=== PATIENT | female | born 1960 | race American Indian/Alaskan Native ===

== ENCOUNTER 2017-07-28 19:49 | Observation (INO) | payer MEDICARE, MEDICAID ==
[2017-07-28] MEDS ORDERED: Sodium Chloride 0.9% 1,000 ML IV STA (20:08)
[2017-07-28 20:18] LABS: HEMOGLOBIN 14.1 g/dL (12.0-16.0); MEAN CELL VOLUME 95.2 fl (80.0-105.0); MEAN CORPUSCULAR HEMOGLOBIN 33.9 pg (25.0-35.0); MEAN CORPUSCULAR HGB CONC 35.6 g/dl (31.0-37.0); MEAN PLATELET VOLUME 9.2 fl (7.0-11.0); RBC 4.16 10^6/uL (3.5-6.1); RED CELL DISTRIBUTION WIDTH 12.4 % (11.5-14.5); WHITE BLOOD COUNT 13.2 10^3/ul (4.5-11.0)
--- NOTE | 2017-07-28 20:26 | ED PDOC ---
Arrival/HPI - General Chief Complaint: Abdominal Pain Time Seen by Provider: 07/28/17 19:58 Historian: Patient - History of Present Illness Narrative History of Present Illness (Text): 07/28/17 20:20 56 year old female, whose past medical history includes COPD, hysterectomy, and colonic polyps, who presents to the emergency department complaining of right lower quadrant pain associated with nausea and frequent vomiting. Patient is also complaining of cramping to bilateral hands. Patient denies fever, chills, shortness of breath, chest pain, or other complaints. Time/Duration: < week Symptom Onset: Sudden Symptom Course: Unchanged Context: Home Past Medical History - Provider Review Nursing Documentation Reviewed: Yes - Cardiac Hx Cardiac Disorders: Yes Hx Congestive Heart Failure: Yes - Psychiatric Hx Substance Use: Yes Family/Social History - Physician Review Nursing Documentation Reviewed: Yes Family/Social History: Unknown Family HX Smoking Status: Light Smoker < 10 Cigarettes Daily Hx Alcohol Use: Yes Frequency of alcohol use: Socially Hx Substance Use: Yes Substance used: Marijuana Allergies/Home Meds Allergies/Adverse Reactions: Allergies No Known Allergies Allergy (Verified 07/28/17 19:54) Home Medications: Home Meds Medication Instructions Recorded Confirmed Hydrochlorothiazide [Microzide] 12.5 mg PO DAILY 07/28/17 07/28/17 Review of Systems - Review of Systems Constitutional: absent: Fevers ENT: absent: Sore Throat Respiratory: absent: SOB Cardiovascular: absent: Chest Pain Gastrointestinal: Abdominal Pain (right lower quadrant ), Nausea, Vomiting. absent: Diarrhea Genitourinary Female: absent: Dysuria Musculoskeletal: absent: Back Pain Skin: absent: Rash Neurological: absent: Headache Endocrine: absent: Diaphoresis Physical Exam Vital Signs Reviewed: Yes Vital Signs Temp Pulse Resp BP Pulse Ox 07/28/17 23:28 98.0 F 77 18 172/83 H 100 07/28/17 19:59 98.0 F 87 18 148/73 100 Temperature: Afebrile Blood Pressure: Normal Pulse: Regular Respiratory Rate: Normal Appearance: Positive for: Well-Appearing, Non-Toxic, Comfortable Pain Distress: None Mental Status: Positive for: Alert and Oriented X 3 - Systems Exam Head: Present: Atraumatic, Normocephalic Pupils: Present: PERRL Extroacular Muscles: Present: EOMI Conjunctiva: Present: Normal Mouth: Present: Moist Mucous Membranes Respiratory/Chest: Present: Clear to Auscultation, Good Air Exchange. No: Respiratory Distress, Accessory Muscle Use, Wheezes, Decreased Breath Sounds, Rales, Retracting, Rhonchi Cardiovascular: Present: Regular Rate and Rhythm, Normal S1, S2. No: Murmurs Abdomen: Present: Tenderness (tenderness on lower abdomen on palpation ), Normal Bowel Sounds. No: Distention, Peritoneal Signs, Rebound, Guarding Upper Extremity: Present: Normal ROM, NORMAL PULSES, Neurovascularly Intact ( spasms noted to bilateral hands ). No: Normal Inspection, Cyanosis, Edema, Tenderness, Swelling, Erythema Neurological: Present: GCS=15, CN II-XII Intact, Speech Normal Skin: Present: Warm, Dry, Normal Color. No: Rashes Psychiatric: Present: Alert, Oriented x 3, Normal Insight, Normal Concentration Medical Decision Making ED Course and Treatment: 07/28/17 Impression: 56 year old female with tenderness on lower abdomen and spasms noted on bilateral hands, complaining of right lower quadrant pain associated with vomiting. Plan: -- EKG -- CT abdomen and pelvis -- Labs -- Pepcid, Toradol, Zofran, and Sodium Chloride -- Urinalysis -- Reassess and disposition Progress Notes: 07/28/17 EKG: Ordered, reviewed, and independently interpreted the EKG. Rate : 79 BPM Rhythm : NSR Interpretation : No ST-segment elevations or depressions, no T-wave inversions, normal intervals. 07/28/17 22:14 CT Abdomen and Pelvis, shows: Lung bases: Unremarkable. No mass. No consolidation. Mediastinum: Small hiatal hernia. ABDOMEN: Liver: The liver is slightly heterogenous in appearance. The liver is enlarged. Gallbladder and bile ducts: Unremarkable. No calcified stones. No ductal dilation. Pancreas: Pancreas evaluation is limited. No ductal dilation. Spleen: Unremarkable. No splenomegaly. Adrenals: 2 cm ovoid nodule in the left adrenal gland. Indeterminate. Further characterization is advised on non-emergent basis. Kidneys and ureters: Subcentimeter low-density lesion then the right kidney is too small No hydronephrosis. Stomach and bowel: There is wall thickening noted involving the descending colon and sigmoid colon. it is under distended. However colitis is considered, in the appropriate clinical setting. Bowel evaluation is limited due to lack of distention. PELVIS: Appendix: No findings to suggest acute appendicitis. Bladder: Unremarkable. No mass. Reproductive: 5.5 x 6.5 cm septated cystic lesion in the region of the right ovary there is there is questionable enhancement or septation. Ultrasound correlation is recommended. ABDOMEN and PELVIS: Intraperitoneal space: Unremarkable. No free air. No significant fluid collection. Bones/joints: No acute fracture. No dislocation. Soft tissues: Small fat-containing umbilical defect. Vasculature: Unremarkable. No abdominal aortic aneurysm. Lymph nodes: Unremarkable. No enlarged lymph nodes. IMPRESSION: 1. 2 cm ovoid nodule in the left adrenal gland. Indeterminate. Further characterization is advised on non-emergent basis. 2. There is wall thickening noted involving the descending colon and sigmoid colon. it is under distended. However colitis is considered, in the appropriate clinical setting. 3. 5.5 x 6.5 cm septated cystic lesion in the region of the right ovary , there is questionable enhancement or septation. Ultrasound correlation is recommended. 07/29/17 00:50 Transvaginal US shows: Limitations: Transabdominal sonographic imaging is limited. Uterus/cervix: The uterus is absent, consistent with the clinical history of partial hysterectomy. Right ovary: There is a right ovarian complex cyst measuring 5.9 x 3.5 x 4.3 cm. Internal septation is visualized. Hypoechoic debris is seen posteriorly. The right ovary measures 6.6 x 3.6 x 4.6 cm. There is physiologic blood flow in right ovary. Left ovary: The left ovary is not visualized. Free fluid: No free fluid. Bladder: Wall is normal thickness for degree of distention. IMPRESSION: 1. There is a right ovarian complex cyst measuring 5.9 x 3.5 x 4.3 cm. Follow- up ultrasonography is recommended. 2. Additional findings described above 07/29/17 00:[address] Shaffer, who is aware and agrees with plan. Accepts pt in to his service. Pt will be admitted to [facility] for colitis, abdominal pain, and vomiting. Requests Dr. Austin on consult. residential roofer notified. - Lab Interpretations Lab Results: 07/28/17 20:00 07/28/17 20:00 Lab Results 07/28/17 22:22: Urine Color Yellow, Urine Appearance Clear, Urine pH 7.5, Ur Specific [place] 1.010, Urine Protein Trace H, Urine Glucose (UA) 100 H, Urine Ketones 40 H, Urine Blood Trace-intact H, Urine Nitrate Negative, Urine Bilirubin Negative, Urine Urobilinogen 0.2, Ur Leukocyte Esterase Negative, Urine RBC 1 - 3, Urine WBC Negative, Ur Epithelial Cells 1 - 3, Urine Bacteria Trace 07/28/17 20:00: WBC 13.2 H, RBC 4.16, Hgb 14.1, Hct 39.6, MCV 95.2, MCH 33.9, MCHC 35.6, RDW 12.4, Plt Count 393, MPV 9.2 07/28/17 20:00: Sodium 142, Potassium 3.3 L, Chloride 101, Carbon Dioxide 25, Anion Gap 20, BUN 14, Creatinine 0.6 L, Est GFR ( Amer) > 60, Est GFR ( Non-Af Amer) > 60, Random Glucose 183 H, Calcium 10.1, Total Bilirubin 0.5, AST 29, ALT 22, Alkaline Phosphatase 88, Total Protein 8.6 H, Albumin 4.9 H, Globulin 3.7, Albumin/Globulin Ratio 1.3, Lipase 49 I have reviewed the lab results: Yes - RAD Interpretation Radiology Orders: 07/28/17 20:08 ABD & PELVIS IV CONTRAST ONLY [CT] Stat 07/28/17 22:15 TRANSVAGINAL [US] Stat Freight Adjuster: Radiologist - EKG Interpretation Interpreted by ED Physician: Yes Type: 12 lead EKG - Medication Orders Current Medication Orders: Sodium Chloride (Sodium Chloride 0.9%) 1,000 mls @ 100 mls/hr IV .Q10H STA Stop: 07/29/17 11:04 Ondansetron HCl (Zofran Inj) 4 mg IVP Q6H PRN PRN Reason: Nausea/Vomiting Discontinued Medications Famotidine (Pepcid) 20 mg IVP STAT STA Stop: 07/28/17 20:09 Last Admin: 07/28/17 20:19 Dose: 20 mg IVP Administration Document 07/28/17 20:19 OCS (Rec: 07/28/17 20:19 OCS [id number]) Charges for Administration # of IVP Administrations 1 Sodium Chloride (Sodium Chloride 0.9%) 1,000 mls @ 999 mls/hr IV .Q1H1M STA Stop: 07/28/17 21:08 Last Admin: 07/28/17 20:18 Dose: 999 mls/hr eMAR Start Stop Document 07/28/17 20:18 OCS (Rec: 07/28/17 20:19 OCS [id number]) Intravenous Solution Start Date 07/28/17 Start Time 20:18 End Date 07/28/17 End time 21:19 Total Infusion Time 61 Ceftriaxone Sodium (Rocephin 1 Gram Ivpb) 1 gm in 100 mls @ 200 mls/hr IV ONCE STA PRN Reason: Protocol Stop: 07/28/17 23:21 Last Admin: 07/28/17 23:25 Dose: 200 mls/hr eMAR Start Stop Document 07/28/17 23:25 OCS (Rec: 07/28/17 23:25 OCS [id number]) Intravenous Solution Start Date 07/28/17 Start Time 23:25 End Date 07/28/17 End time 23:55 Total Infusion Time 30 Metronidazole (Flagyl) 500 mg in 100 mls @ 100 mls/hr IVPB STAT STA PRN Reason: Protocol Stop: 07/28/17 23:51 Last Admin: 07/29/17 00:36 Dose: 100 mls/hr eMAR Start Stop Document 07/29/17 00:36 OCS (Rec: 07/29/17 00:36 OCS [id number]) Intravenous Solution Start Date 07/29/17 Start Time 00:36 End Date 07/29/17 End time 01:36 Total Infusion Time 60 Ketorolac Tromethamine (Toradol) 30 mg IVP ONCE ONE Stop: 07/28/17 20:09 Last Admin: 07/28/17 20:19 Dose: 30 mg MAR Pain Assessment Document 07/28/17 20:19 OCS (Rec: 07/28/17 20:19 [id number] Pain Reassessment Is this a pain reassessment? No Sleep Is patient sleeping during reassessment? No Presence of Pain Presence of Pain Yes Location Pain Location Body Site Abdomen Description Description Constant Intensity of Pain at present 8 IVP Administration Document 07/28/17 20:19 OCS (Rec: 07/28/17 20:19 [id number] Charges for Administration # of IVP Administrations 1 Morphine Sulfate (Morphine) 2 mg IVP STAT STA Stop: 07/28/17 22:10 Last Admin: 07/28/17 22:46 Dose: 2 mg MAR Pain Assessment Document 07/28/17 22:46 OCS (Rec: 07/28/17 22:46 [id number] Pain Reassessment Is this a pain reassessment? Yes Sleep Is patient sleeping during reassessment? No Presence of Pain Presence of Pain Yes Pain Scale Used Pain Scale Used Numeric Location Pain Location Body Site Abdomen Description Description Constant Intensity of Pain at present 9 Pain Behavior Moaning Irritability Facial Grimacing IVP Administration Document 07/28/17 22:46 OCS (Rec: 07/28/17 22:46 [id number] Charges for Administration # of IVP Administrations 1 Ondansetron HCl (Zofran Inj) 4 mg IVP ONCE ONE Stop: 07/28/17 20:09 Last Admin: 07/28/17 20:19 Dose: 4 mg IVP Administration Document 07/28/17 20:19 OCS (Rec: 07/28/17 20:19 [id number] Charges for Administration # of IVP Administrations 1 - Scribe Statement The provider has reviewed the documentation as recorded by the Odell Moreno Provider Scribe Attestation: All medical record entries made by the Scribe were at my direction and personally dictated by me. I have reviewed the chart and agree that the record accurately reflects my personal performance of the history, physical exam, medical decision making, and the department course for this patient. I have also personally directed, reviewed, and agree with the discharge instructions and disposition. Disposition/Present on Arrival - Present on Arrival Any Indicators Present on Arrival: No History of DVT/PE: No History of Uncontrolled Diabetes: No Urinary Catheter: No History of Decub. Ulcer: No History Surgical Site Infection Following: None - Disposition Have Diagnosis and Disposition been Completed?: Yes Diagnosis: Abdominal pain, Colitis, Intractable vomiting Disposition: HOSPITALIZED Disposition Time: 01:05 Patient Problems: Current Active Problems Problem Status Onset Abdominal pain Acute Colitis Acute Intractable vomiting Acute Condition: STABLE Forms: doxo (Sammarinese)
[2017-07-28 20:32] LABS: ALB/GLOB RATIO 1.3 (1.1-1.8); ALBUMIN 4.9 g/dL (3.0-4.8); ALT/SGPT 22 U/L (7-56); AST/SGOT 29 U/L (14-36); BLOOD UREA NITROGEN 14 mg/dL (7-21); CALCIUM 10.1 mg/dL (8.4-10.5); GFR AFRICAN-AMERICAN > 60; GFR NON-AFRICAN AMERICAN > 60; LIPASE 49 U/L (23-300)
[2017-07-28] MEDS ORDERED: Iohexol 350 MG/100 ML VIAL ONE (20:51)
[2017-07-28] MEDS ORDERED: Morphine 2 mg/ml ISec IVP STA (22:09)
[2017-07-28 22:25] LABS: PH,URINE 7.5 (4.7-8.0); URINE BILIRUBIN NEGATIVE (NEGATIVE); URINE BLOOD TRACE-INTACT (NEGATIVE); URINE GLUCOSE (UA) 100 mg/dL (NEGATIVE); URINE LEUKOCYTE ESTERASE NEGATIVE Leu/uL (NEGATIVE); URINE PROTEIN TRACE mg/dL (<30 mg/dL); URINE UROBILINOGEN 0.2 E.U./dL (<1 E.U./dL)
[2017-07-28 22:26] LABS: URINE APPEARANCE CLEAR (CLEAR); URINE COLOR YELLOW (YELLOW)
[2017-07-28 22:31] LABS: URINE BACTERIA TRACE (NEG); URINE WBC NEGATIVE /hpf (0-6)
[2017-07-28] MEDS ORDERED: cefTRIAXone 1 gm 1 GM/100 ML BAG IV STA (22:52)
[2017-07-28] MEDS ORDERED: metroNIDAZOLE IV 500 mg/100 ml 500 MG/100 ML BAG IVPB STA (22:52)
--- NOTE | 2017-07-29 00:49 | US ---
EXAM: US Pelvis Complete, Transabdominal US Pelvis, Transvaginal EXAM DATE/TIME: 07/28/2017 10:15 PM CLINICAL HISTORY: The patient age is 56 years old and is female; Pain; Pelvic pain Facility exam id and description: Us transve transvaginal TECHNIQUE: Real-time transabdominal and transvaginal pelvic ultrasound (complete) with image documentation. Transvaginal imaging was used for better evaluation of the endometrium and adnexa. COMPARISON: CT - ABD PELVIS IV CONTRAST ONLY 2017-07-28 21:00 FINDINGS: Limitations: Transabdominal sonographic imaging is limited. Uterus/cervix: The uterus is absent, consistent with the clinical history of partial hysterectomy. Right ovary: There is a right ovarian complex cyst measuring 5.9 x 3.5 x 4.3 cm. Internal septation is visualized. Hypoechoic debris is seen posteriorly. The right ovary measures 6.6 x 3.6 x 4.6 cm. There is physiologic blood flow in right ovary. Left ovary: The left ovary is not visualized. Free fluid: No free fluid. Bladder: Wall is normal thickness for degree of distention. IMPRESSION: 1. There is a right ovarian complex cyst measuring 5.9 x 3.5 x 4.3 cm. Follow-up ultrasonography is recommended. 2. Additional findings described above.
[2017-07-29] MEDS ORDERED: Sodium Chloride 0.9% 1,000 ML IV STA (01:05)
--- NOTE | 2017-07-29 01:31 | CP.PCM.HP ---
<Compa Douglas - Last Filed: 07/29/17 08:56> History of Present Illness - History of Present Illness History of Present Illness: 56 year old female with a past medical history of hypertension who comes in today complaining of nausea and vomiting for since this morning. The patient reports not being able to keep anything down except a little of water. The patient reports taking Pepto Bismol at home with no improvement in symtpoms. She denies any new foods or changes in her diet. She denies any chest pain, shortness of breath, fevers, chills, syncopal episodes, headache, numbness or tingling in the extremities or any other complaints. Past medical history: Hypertension Surgical history: 2012 Hysterectomy 2018 Removal of benign colonic polyps Allergies: Pollen Medications: Lasix 12.5mg PO Daily Social history: Smoking history of 53 years. Denies illicit drug use or alcohol use. PMD: Dr. Wesley Present on Admission - Present on Admission Any Indicators Present on Admission: No Review of Systems - Constitutional Constitutional: absent: Daytime Sleepiness, Headache, Snoring, Weakness - EENT Eyes: absent: Loss of Peripheral Vision, Loss of Vision Ears: absent: Ear Discharge, Dizziness Nose/Mouth/Throat: absent: Nasal Trauma, Bleeding Gums, Halitosis, Mouth Pain, Facial Pain - Breasts Breasts: absent: Change in Shape - Cardiovascular Cardiovascular: absent: Chest Pain, Claudication, Irregular Heart Rhythm, Leg Edema, Syncope - Respiratory Respiratory: absent: Cough, Hemoptysis, Snoring, Excessive Mucous Production, Change in Mucous Color - Gastrointestinal Gastrointestinal: Nausea, Vomiting. absent: Belching, Cramping, Excessive Flatus, Fecal Incontinence, Loose Stools, Temesmus - Genitourinary Genitourinary: absent: Change in Urinary Stream, Pyuria, Urinary Hesitance, Freq UTI, Bladder Distension - Musculoskeletal Musculoskeletal: absent: Abnormal Gait, Arthralgias, Atrophy, Limited Range of Motion, Myalgias, Neck Pain, Tingling - Integumentary Integumentary: absent: Bleeding Lesions, Changing Lesions, New Lesions, Rash, Striae, Swelling, Unusual Bruising - Neurological Neurological: absent: Abnormal Hearing, Behavioral Changes, Dizziness, Lack of Coordination, Radicular Pain, Tingling - Psychiatric Psychiatric: absent: Abnormal Sleep Pattern, Behavioral Changes, Depression, Hopelessness, Panic Attacks, Tactile Hallucinations - Endocrine Endocrine: absent: Polydipsia, Polyphagia, Polyuria - Hematologic/Lymphatic Hematologic: absent: Easy Bleeding, Easy Bruising Past Patient History - Past Social History Smoking Status: Light Smoker < 10 Cigarettes Daily - CARDIAC Hx Cardiac Disorders: Yes Hx Congestive Heart Failure: Yes - PSYCHIATRIC Hx Substance Use: Yes Meds Allergies/Adverse Reactions: Allergies Allergy/AdvReac Type Severity Reaction Status Date / Time No Known Allergies Allergy Verified 07/28/17 19:54 Physical Exam - Head Exam Head Exam: ATRAUMATIC, NORMAL INSPECTION, NORMOCEPHALIC - Eye Exam Eye Exam: EOMI, Normal appearance, PERRL Pupil Exam: NORMAL ACCOMODATION - ENT Exam ENT Exam: Mucous Membranes Moist, Normal Oropharynx - Respiratory Exam Respiratory Exam: Clear to Auscultation Bilateral, NORMAL BREATHING PATTERN. absent: Chest Wall Tenderness, Prolonged Expiratory Phase, Respiratory Distress - Cardiovascular Exam Cardiovascular Exam: REGULAR RHYTHM, +S1, +S2 - GI/Abdominal Exam GI & Abdominal Exam: Normal Bowel Sounds, Tenderness - Extremities Exam Extremities exam: Positive for: normal inspection. Negative for: full ROM, joint swelling, pedal edema, tenderness - Back Exam Back exam: NORMAL INSPECTION. absent: CVA tenderness (L), CVA tenderness (R), paraspinal tenderness - Neurological Exam Neurological exam: Alert, CN II-XII Intact, Oriented x3 - Psychiatric Exam Psychiatric exam: Normal Affect, Normal Mood - Skin Skin Exam: Dry, Intact, Normal Color Results - Vital Signs Recent Vital Signs: Last Vital Signs Temp 98.0 F 07/28/17 23:28 Pulse 77 07/28/17 23:28 Resp 18 07/28/17 23:28 BP 172/83 H 07/28/17 23:28 Pulse Ox 100 07/28/17 23:28 - Labs Result Diagrams: 07/28/17 20:00 07/28/17 20:00 Labs: Laboratory Results - last 24 hr 07/28/17 07/28/17 07/28/17 20:00 20:00 22:22 WBC 13.2 H RBC 4.16 Hgb 14.1 Hct 39.6 MCV 95.2 MCH 33.9 MCHC 35.6 RDW 12.4 Plt Count 393 MPV 9.2 Sodium 142 Potassium 3.3 L Chloride 101 Carbon Dioxide 25 Anion Gap 20 BUN 14 Creatinine 0.6 L Est GFR ( Amer) > 60 Est GFR (Non-Af Amer) > 60 Random Glucose 183 H Calcium 10.1 Total Bilirubin 0.5 AST 29 ALT 22 Alkaline Phosphatase 88 Total Protein 8.6 H Albumin 4.9 H Globulin 3.7 Albumin/Globulin Ratio 1.3 Lipase 49 Urine Color Yellow Urine Appearance Clear Urine pH 7.5 Ur Specific [place] 1.010 Urine Protein Trace H Urine Glucose (UA) 100 H Urine Ketones 40 H Urine Blood Trace-intact H Urine Nitrate Negative Urine Bilirubin Negative Urine Urobilinogen 0.2 Ur Leukocyte Esterase Negative Urine RBC 1 - 3 Urine WBC Negative Ur Epithelial Cells 1 - 3 Urine Bacteria Trace Assessment & Plan - Assessment and Plan (Free Text) Assessment: 56 year old female with a history of hypertension being admitted for Colitis. Plan: 1. Colitis -Abdomen/pelvis ct: 2 cm ovoid nodule in left adrenal gland. Wall thickening noted involving descending colon and sigmoid colon. 5.5X6.5cm septated cystic lesion in region of right ovary -NPO -IV Fluids -IV Rocephin and Flagyl -GI consulted. Help appreciated 2. hx hypertension -Restart home medications PPX -Heparin -Protonix. <DeenaLianaSalas U - Last Filed: 07/30/17 16:28> Results - Vital Signs Recent Vital Signs: Last Vital Signs Temp 98 F 07/30/17 09:04 Pulse 48 L 07/30/17 09:04 Resp 17 07/30/17 09:04 BP 157/77 H 07/30/17 09:04 Pulse Ox 98 07/30/17 09:04 - Labs Result Diagrams: 07/30/17 06:00 07/30/17 06:00 Labs: Laboratory Results - last 24 hr 07/29/17 07/29/17 07/29/17 07:30 10:30 10:30 WBC RBC Hgb Hct MCV MCH MCHC RDW Plt Count MPV Gran % Lymph % (Auto) [place] % (Auto) Eos % (Auto) Baso % (Auto) Gran # Lymph # (Auto) [place] # (Auto) Eos # (Auto) Baso # (Auto) Sodium Potassium Chloride Carbon Dioxide Anion Gap BUN Creatinine Est GFR ( Amer) Est GFR (Non-Af Amer) Random Glucose Fructosamine 242 Calcium Magnesium Total Bilirubin Direct Bilirubin AST ALT Alkaline Phosphatase Total Protein Albumin Globulin Albumin/Globulin Ratio Urine Opiates Screen U Oth Cocaine Metabols U Cannabinoids Screen RPR Nonreactive Hepatitis C Antibody HIV 1&2 Ag/Ab, 4th Gen Nonreactive 07/29/17 07/29/17 07/30/17 10:30 13:15 06:00 WBC 9.3 RBC 3.75 Hgb 12.4 Hct 36.4 MCV 97.1 MCH 33.1 MCHC 34.1 RDW 12.7 Plt Count 323 MPV 9.2 Gran % 58.9 Lymph % (Auto) 31.6 [place] % (Auto) 7.7 H Eos % (Auto) 1.4 L Baso % (Auto) 0.4 Gran # 5.47 Lymph # (Auto) 2.9 [place] # (Auto) 0.7 H Eos # (Auto) 0.1 Baso # (Auto) 0.04 Sodium Potassium Chloride Carbon Dioxide Anion Gap BUN Creatinine Est GFR ( Amer) Est GFR (Non-Af Amer) Random Glucose Fructosamine Calcium Magnesium Total Bilirubin Direct Bilirubin AST ALT Alkaline Phosphatase Total Protein Albumin Globulin Albumin/Globulin Ratio Urine Opiates Screen Positive H U Oth Cocaine Metabols Negative U Cannabinoids Screen Positive H RPR Hepatitis C Antibody Negative HIV 1&2 Ag/Ab, 4th Gen 07/30/17 07/30/17 06:00 06:00 WBC RBC Hgb Hct MCV MCH MCHC RDW Plt Count MPV Gran % Lymph % (Auto) [place] % (Auto) Eos % (Auto) Baso % (Auto) Gran # Lymph # (Auto) [place] # (Auto) Eos # (Auto) Baso # (Auto) Sodium 142 Potassium 3.5 L Chloride 107 Carbon Dioxide 23 Anion Gap 15 BUN 9 Creatinine 0.6 L Est GFR ( Amer) > 60 Est GFR (Non-Af Amer) > 60 Random Glucose 92 Fructosamine Calcium 8.6 Magnesium 1.9 Total Bilirubin 0.7 0.5 Direct Bilirubin 0.1 AST 27 24 ALT 24 21 Alkaline Phosphatase 62 59 Total Protein 6.5 6.5 Albumin 3.8 3.9 Globulin 2.8 2.6 Albumin/Globulin Ratio 1.3 1.5 Urine Opiates Screen U Oth Cocaine Metabols U Cannabinoids Screen RPR Hepatitis C Antibody HIV 1&2 Ag/Ab, 4th Gen Attending/Attestation - Attestation I have personally seen and examined this patient.: Yes I have fully participated in the care of the patient.: Yes I have reviewed all pertinent clinical information: Yes
[2017-07-29] MEDS: metroNIDAZOLE IV 500 mg/100 ml 500 MG/100 ML BAG IVPB SCH ×3 (05:24→21:28)
[2017-07-29] MEDS: Levalbuterol 0.63 MG/3 ML Inhal Soln UD IH SCH ×3 (07:20→19:36)
[2017-07-29 07:56] LABS: HEMOGLOBIN 13.2 g/dL (12.0-16.0); MEAN CELL VOLUME 95.5 fl (80.0-105.0); MEAN CORPUSCULAR HEMOGLOBIN 33.3 pg (25.0-35.0); MEAN CORPUSCULAR HGB CONC 34.9 g/dl (31.0-37.0); MEAN PLATELET VOLUME 9.2 fl (7.0-11.0); RBC 3.96 10^6/uL (3.5-6.1); RED CELL DISTRIBUTION WIDTH 12.5 % (11.5-14.5)
[2017-07-29 08:05] LABS: ALB/GLOB RATIO 1.4 (1.1-1.8); ALBUMIN 4.3 g/dL (3.0-4.8); ALT/SGPT 24 U/L (7-56); AST/SGOT 22 U/L (14-36); BILIRUBIN,DIRECT 0.3 mg/dL (0.0-0.4); BLOOD UREA NITROGEN 14 mg/dL (7-21); CALCIUM 8.9 mg/dL (8.4-10.5); GFR AFRICAN-AMERICAN > 60; GFR NON-AFRICAN AMERICAN > 60; HDL CHOLESTEROL 51 mg/dL (29-60)
[2017-07-29 08:08] LABS: LDL CHOLESTEROL 182 mg/dL (0-129)
[2017-07-29 08:16] LABS: FREE T4 1.17 ng/dL (0.78-2.19); T4 7.7 ug/dL (5.5-11.0)
[2017-07-29] MEDS: cefTRIAXone 1 gm 1 GM/100 ML BAG IVPB SCH (09:11)
--- NOTE | 2017-07-29 10:04 | CARD ---
APPROVED REPORT EKG Measurement Heart [id number] <Conclusion> Normal sinus rhythm Nonspecific T wave abnormality Prolonged QT Abnormal ECG
--- NOTE | 2017-07-29 10:36 | CT ---
PROCEDURE: CT Abdomen and Pelvis with contrast HISTORY: abdominal pain COMPARISON: None. TECHNIQUE: Contrast dose: 100 cc of Omni 350 Radiation dose: Total exam DLP = 463 mGy-cm. This CT exam was performed using one or more of the following dose reduction techniques: Automated exposure control, adjustment of the mA and/or kV according to patient size, and/or use of iterative reconstruction technique. FINDINGS: LOWER THORAX: Unremarkable. LIVER: Unremarkable. No gross lesion or ductal dilatation. GALLBLADDER AND BILE DUCTS: Unremarkable. PANCREAS: Unremarkable. No gross lesion or ductal dilatation. SPLEEN: Unremarkable. ADRENALS: There is enlargement of the left adrenal gland which has a low density. This is most likely adrenal hyperplasia or adenoma. KIDNEYS AND URETERS: Unremarkable. No hydronephrosis. No solid mass. VASCULATURE: Unremarkable. No aortic aneurysm. BOWEL: There is lack of distension of the descending and sigmoid colon. There is mild mural thickening. This could represent mild colitis. Clinical correlation is suggested APPENDIX: Normal appendix. PERITONEUM: Unremarkable. No free fluid. No free air. LYMPH NODES: Unremarkable. No enlarged lymph nodes. BLADDER: Unremarkable. REPRODUCTIVE: There is a septated right adnexal cyst measuring 4.6 x 5.4 cm. Previous hysterectomy BONES: No acute fracture. OTHER FINDINGS: The report concurs with the preliminary [facility] report IMPRESSION: There is lack of distension of the descending and sigmoid colon. There is mild mural thickening. This could represent mild colitis. Clinical correlation is suggested There is a septated right adnexal cyst measuring 4.6 x 5.4 cm. Previous hysterectomy
[2017-07-29] MEDS: POLYETHYLENE GLYCOL 3350 17 GM/Dose PACKET PO SCH ×2 (11:05→11:56)
[2017-07-29 14:48] LABS: BARBITURATES, UR NEGATIVE (NEGATIVE); BENZODIAZEPINES, UR NEGATIVE (NEGATIVE)
[2017-07-29 14:49] LABS: PHENCYCLIDINE, UR NEGATIVE (NEGATIVE)
[2017-07-29 16:12] LABS: HEPATITIS B SURFACE AG Negative (NEGATIVE)
[2017-07-29 16:17] LABS: HEPATITIS A IGM NEGATIVE (NEGATIVE); HEPATITIS B CORE AB NEGATIVE (NEGATIVE)
[2017-07-29 16:29] LABS: HEPATITIS C ANTIBODY NEGATIVE (NEGATIVE)
[2017-07-29] MEDS ORDERED: Ergocalciferol 50,000 Intl Units Cap PO SCH (17:30)
[2017-07-29] MEDS: Thiamine 100 mg/ml Inj IV SCH (19:39)
--- NOTE | 2017-07-30 00:07 | CON ---
DATE: 07/29/2017 GASTROENTEROLOGY CONSULTATION REQUESTING PHYSICIAN: Salas Shaffer MD REASON FOR CONSULTATION AND HISTORY OF PRESENT ILLNESS: I have been asked to see this 56-year-old female with history of hypertension who comes to the hospital with two days of intractable nausea and vomiting. The patient was unable to keep any liquids down. She has not had any further vomiting since her hospitalization. A CT scan of the abdomen and pelvis performed here in the hospital showed mild nonspecific mural thickening of the sigmoid and descending colon without any pericolonic inflammation associated with underdistention of the colon as well as a right 5.5 x 4.5 cm adnexal cyst. She denies any diarrhea, ingestion of any unusual foods, rectal bleeding, hematemesis or melena. The patient smokes marijuana on a regular basis. She last smoked marijuana on the day that her symptoms began. PAST MEDICAL HISTORY: Notable for hypertension. PAST SURGICAL HISTORY: Notable for hysterectomy. Notes that she recently had a colonoscopy with removal of benign polyps. SOCIAL HISTORY: She smokes between a half pack and a pack a day of tobacco. She smokes marijuana regularly. MEDICATIONS AT HOME: Include Lasix mg once a day. FAMILY HISTORY: Noncontributory. REVIEW OF SYSTEMS: A 14-point review of systems is notable for nausea and vomiting. PHYSICAL EXAMINATION GENERAL: Middle-aged female lying in bed, in no acute distress. VITAL SIGNS: Reveal temperature of 99.4, blood pressure 139/88, and heart rate of 80. HEENT: Reveals sclerae to be white. Conjunctivae pink. Oral mucosa is moist. NECK: Supple. CHEST: Revealed lungs to be clear. HEART: Reveals regular rate and rhythm. ABDOMEN: Soft and nontender. No mass. EXTREMITIES: Show no edema. LABORATORY DATA: Reveal white blood cell count of 11, hemoglobin 13.2. Chemistries reveal potassium of 3.3, blood sugar 120. AST, ALT and alkaline phosphatase were all normal. IMPRESSION: A 56-year-old female with two days of intractable nausea and vomiting which may be related to her chronic cannabis use. CT scan of the abdomen and pelvis showed mild nonspecific mural thickening of the sigmoid colon and descending colon. I suspect that this is due to underdistention and lack of contrast that is supposed to an acute colitis. Clinically, she does not have acute colitis. RECOMMENDATIONS: 1. Advance to solid diet consisting of low fat, low residue. 2. The patient will need PIPELINE DISPATCHER followup with a repeat pelvic ultrasound in the next three to four months for followup of her ovarian cyst. No further PIPELINE DISPATCHER workup planned. Jaime Austin MD
[2017-07-30 00:27] LABS: OPIATES, UR POSITIVE (NEGATIVE)
[2017-07-30] MEDS: Levalbuterol 0.63 MG/3 ML Inhal Soln UD IH SCH ×2 (01:30→07:09)
[2017-07-30] MEDS: metroNIDAZOLE IV 500 mg/100 ml 500 MG/100 ML BAG IVPB SCH (05:31)
[2017-07-30 06:49] LABS: BASO # 0.04 K/mm3 (0.0-2.0); BASO % 0.4 % (0.0-3.0); EOS # 0.1 (0.0-0.7); EOS % 1.4 % (1.5-5.0); GRAN # 5.47 (1.4-6.5); GRAN % 58.9 % (50.0-68.0); HEMOGLOBIN 12.4 g/dL (12.0-16.0); LYMPH # 2.9 (1.2-3.4); LYMPH % 31.6 % (22.0-35.0); MEAN CELL VOLUME 97.1 fl (80.0-105.0); MEAN CORPUSCULAR HEMOGLOBIN 33.1 pg (25.0-35.0); MEAN CORPUSCULAR HGB CONC 34.1 g/dl (31.0-37.0); MEAN PLATELET VOLUME 9.2 fl (7.0-11.0); MONO # 0.7 (0.1-0.6); MONO % 7.7 % (1.0-6.0); RBC 3.75 10^6/uL (3.5-6.1); RED CELL DISTRIBUTION WIDTH 12.7 % (11.5-14.5); WHITE BLOOD COUNT 9.3 10^3/ul (4.5-11.0)
[2017-07-30 07:00] LABS: ALB/GLOB RATIO 1.5 (1.1-1.8); ALBUMIN 3.9 g/dL (3.0-4.8); BILIRUBIN,DIRECT 0.1 mg/dL (0.0-0.4)
[2017-07-30 07:15] LABS: ALB/GLOB RATIO 1.3 (1.1-1.8); ALBUMIN 3.8 g/dL (3.0-4.8); ALT/SGPT 24 U/L (7-56); AST/SGOT 27 U/L (14-36); BLOOD UREA NITROGEN 9 mg/dL (7-21); CALCIUM 8.6 mg/dL (8.4-10.5); GFR AFRICAN-AMERICAN > 60; GFR NON-AFRICAN AMERICAN > 60
[2017-07-30 09:04] VITALS: BP 157/77; PULSE 48; RESP 17; TEMP 98; O2SAT 98
[2017-07-30] MEDS: Potassium Chloride 40 mEq/30 ml LIQ UD PO SCH ×3 (09:31→11:01)
[2017-07-30] MEDS: cefTRIAXone 1 gm 1 GM/100 ML BAG IVPB SCH (09:31)
[2017-07-30] MEDS: Thiamine 100 mg/ml Inj IV SCH (09:35)
[2017-07-30] MEDS: POLYETHYLENE GLYCOL 3350 17 GM/Dose PACKET PO SCH (09:35)
[2017-07-30] MEDS: Potassium Chloride 20 mEq ER Tab PO SCH ×2 (10:53→12:04)
--- NOTE | 2017-07-30 11:48 | CP.PCM.DIS ---
<JustoSunilradhajohn - Last Filed: 07/30/17 11:43> Provider - Provider Date of Admission: 07/29/17 00:58 Attending physician: Salas Shaffer MD Consults: GI: Geovanna Time Spent in preparation of Discharge (in minutes): 35 Diagnosis - Discharge Diagnosis (1) Abdominal pain Status: Acute (2) Colitis Status: Acute Hospital Course - Lab Results Lab Results: Most Recent Lab Values WBC 9.3 10^3/ul (4.5-11.0) 07/30/17 06:00 RBC 3.75 10^6/uL (3.5-6.1) 07/30/17 06:00 Hgb 12.4 g/dL (12.0-16.0) 07/30/17 06:00 Hct 36.4 % (36.0-48.0) 07/30/17 06:00 MCV 97.1 fl (80.0-105.0) 07/30/17 06:00 MCH 33.1 pg (25.0-35.0) 07/30/17 06:00 MCHC 34.1 g/dl (31.0-37.0) 07/30/17 06:00 RDW 12.7 % (11.5-14.5) 07/30/17 06:00 Plt Count 323 10^3/uL (120.0-450.0) 07/30/17 06:00 MPV 9.2 fl (7.0-11.0) 07/30/17 06:00 Gran % 58.9 % (50.0-68.0) 07/30/17 06:00 Lymph % (Auto) 31.6 % (22.0-35.0) 07/30/17 06:00 [place] % (Auto) 7.7 % (1.0-6.0) H 07/30/17 06:00 Eos % (Auto) 1.4 % (1.5-5.0) L 07/30/17 06:00 Baso % (Auto) 0.4 % (0.0-3.0) 07/30/17 06:00 Gran # 5.47 (1.4-6.5) 07/30/17 06:00 Lymph # (Auto) 2.9 (1.2-3.4) 07/30/17 06:00 [place] # (Auto) 0.7 (0.1-0.6) H 07/30/17 06:00 Eos # (Auto) 0.1 (0.0-0.7) 07/30/17 06:00 Baso # (Auto) 0.04 K/mm3 (0.0-2.0) 07/30/17 06:00 Sodium 142 mmol/L (132-148) 07/30/17 06:00 Potassium 3.5 mmol/L (3.6-5.0) L 07/30/17 06:00 Chloride 107 mmol/L (98-107) 07/30/17 06:00 Carbon Dioxide 23 mmol/L (21-33) 07/30/17 06:00 Anion Gap 15 (10-20) 07/30/17 06:00 BUN 9 mg/dL (7-21) 07/30/17 06:00 Creatinine 0.6 mg/dl (0.7-1.2) L 07/30/17 06:00 Est GFR ( Amer) > 60 07/30/17 06:00 Est GFR (Non-Af Amer) > 60 07/30/17 06:00 Random Glucose 92 mg/dL (70-110) 07/30/17 06:00 Hemoglobin A1c 6.0 % (4.2-6.5) 07/29/17 07:30 Fructosamine 242 umol/L (190-270) 07/29/17 07:30 Lactic Acid 0.7 mmol/L (0.7-2.1) 07/29/17 08:50 Calcium 8.6 mg/dL (8.4-10.5) 07/30/17 06:00 Magnesium 1.9 mg/dL (1.7-2.2) 07/30/17 06:00 Total Bilirubin 0.7 mg/dL (0.2-1.3) 07/30/17 06:00 Direct Bilirubin 0.1 mg/dL (0.0-0.4) 07/30/17 06:00 AST 27 U/L (14-36) 07/30/17 06:00 ALT 24 U/L (7-56) 07/30/17 06:00 Alkaline Phosphatase 62 U/L (38-126) 07/30/17 06:00 Total Protein 6.5 g/dL (5.8-8.3) 07/30/17 06:00 Albumin 3.8 g/dL (3.0-4.8) 07/30/17 06:00 Globulin 2.8 gm/dL 07/30/17 06:00 Albumin/Globulin Ratio 1.3 (1.1-1.8) 07/30/17 06:00 Triglycerides 60 mg/dL (35-160) 07/29/17 07:30 Cholesterol 283 mg/dL (130-200) H 07/29/17 07:30 LDL Cholesterol Direct 182 mg/dL (0-129) H 07/29/17 07:30 HDL Cholesterol 51 mg/dL (29-60) 07/29/17 07:30 Lipase 49 U/L (23-300) 07/28/17 20:00 25-OH Vitamin D Total 19.5 NG/ML (30.0-100.0) L 07/29/17 07:30 Procalcitonin 0.05 NG/ML (0.19-0.49) L 07/29/17 07:30 Free T4 1.17 ng/dL (0.78-2.19) 07/29/17 07:30 Thyroxine (T4) 7.7 ug/dL (5.5-11.0) 07/29/17 07:30 TSH 3rd Generation 0.59 mIU/mL (0.46-4.68) 07/29/17 07:30 Urine Color Yellow (YELLOW) 07/28/17 22:22 Urine Appearance Clear (CLEAR) 07/28/17 22:22 Urine pH 7.5 (4.7-8.0) 07/28/17 22:22 Ur Specific [place] 1.010 (1.005-1.035) 07/28/17 22:22 Urine Protein Trace mg/dL (<30 mg/dL) H 07/28/17 22:22 Urine Glucose (UA) 100 mg/dL (NEGATIVE) H 07/28/17 22:22 Urine Ketones 40 mg/dL (NEGATIVE) H 07/28/17 22:22 Urine Blood Trace-intact (NEGATIVE) H 07/28/17 22:22 Urine Nitrate Negative (NEGATIVE) 07/28/17 22:22 Urine Bilirubin Negative (NEGATIVE) 07/28/17 22:22 Urine Urobilinogen 0.2 E.U./dL (<1 E.U./dL) 07/28/17 22:22 Ur Leukocyte Esterase Negative Pia/uL (NEGATIVE) 07/28/17 22:22 Urine RBC 1 - 3 /hpf (0-2) 07/28/17 22:22 Urine WBC Negative /hpf (0-6) 07/28/17 22:22 Ur Epithelial Cells 1 - 3 /hpf (0-5) 07/28/17 22:22 Urine Bacteria Trace (NEG) 07/28/17 22:22 Urine HCG, Qual Negative (NEGATIVE) 07/29/17 09:00 Urine Opiates Screen Positive (NEGATIVE) H 07/29/17 13:15 Urine Methadone Screen Negative (NEGATIVE) 07/29/17 13:15 Ur Barbiturates Screen Negative (NEGATIVE) 07/29/17 13:15 Ur Phencyclidine Scrn Negative (NEGATIVE) 07/29/17 13:15 Ur Amphetamines Screen Negative (NEGATIVE) 07/29/17 13:15 U Benzodiazepines Scrn Negative (NEGATIVE) 07/29/17 13:15 U Oth Cocaine Metabols Negative (NEGATIVE) 07/29/17 13:15 U Cannabinoids Screen Positive (NEGATIVE) H 07/29/17 13:15 RPR Nonreactive (NONREACTIVE) 07/29/17 10:30 Hepatitis A IgM Ab Negative (NEGATIVE) 07/29/17 10:30 Hep Bs Antigen Negative (NEGATIVE) 07/29/17 10:30 Hep B Core IgM Ab Negative (NEGATIVE) 07/29/17 10:30 Hepatitis C Antibody Negative (NEGATIVE) 07/29/17 10:30 HIV 1&2 Ag/Ab, 4th Gen Nonreactive (Nonreactive) 07/29/17 10:30 - Hospital Course Hospital Course: 56 yo F with PMH of hypertension and bipolar disorder who initially presented complaining of nausea, vomiting, and abdominal pain, and was found to have evidence of colitis on cross sectional imaging. She was also noted to have a complex ovarian cyst, which she already knew about and reportedly has had for many years, but was informed about it and instructed to follow up with gynecology. She was treated with IV antibiotics, pain control, and antiemetics for colitis, nausea, and vomiting. She was also seen by gastroenterology. Her diet was progressively advanced, which she tolerated well. Today, she is tolerating a regular diet with no further nausea, vomiting, or abdominal pain. She denies fever, chills, or diarrhea. She was given a prescription to continue antibiotics for 5 more days, and is discharged home. Discharge Exam - Head Exam Head Exam: ATRAUMATIC, NORMAL INSPECTION, NORMOCEPHALIC - Eye Exam Eye Exam: EOMI, Normal appearance - ENT Exam ENT Exam: Mucous Membranes Moist - Respiratory Exam Respiratory Exam: Clear to PA & Lateral, NORMAL BREATHING PATTERN - Cardiovascular Exam Cardiovascular Exam: RRR - GI/Abdominal Exam GI & Abdominal Exam: Normal Bowel Sounds, Soft. absent: Distended, Firm, Guarding, Rebound, Rigid, Tenderness - Extremities Exam Extremities exam: normal inspection - Neurological Exam Neurological exam: Alert, Oriented x3 - Psychiatric Exam Psychiatric exam: Normal Affect, Normal Mood - Skin Skin Exam: Dry, Intact, Normal Color Discharge Plan - Discharge Medications Prescriptions: Ciprofloxacin [Cipro] 500 mg PO BID #10 tab Ergocalciferol [Drisdol 50,000 Intl Units Cap] 1 cap PO Q7D #12 cap metroNIDAZOLE [Flagyl] 500 mg PO TID #15 tab Nicotine 21 mg/24 hr [Nicoderm Cq] 1 patch TD DAILY #30 patch Polyethylene Glycol 3350 [Miralax] 17 gm PO DAILY #30 packet Thiamine [Vitamin B1 Tab] 100 mg PO DAILY #30 tab - Follow Up Plan Condition: STABLE Disposition: HOME/ ROUTINE Instructions: Acute Abdomen (Belly Pain), Adult (DC), Nausea and Vomiting, Adult (DC), Microscopic Colitis, Acute Abdominal Pain (DC) Additional Instructions: Continue to take the antibiotics as prescribed for 5 more days, even if you feel better MAY DISCHARGE HOME FOLLOW UP: PRIMARY MEDICAL DOCTOR PSYCHIATRY GYNECOLOGY WITHIN 1 WEEK PATIENT TO RELEASE ALL RECORDS FROM THIS HOSPITALIZATION TO PMD, PSYCHIATRY AND GYNECOLOGY STOP ALCOHOL, STOP SMOKING STOP RECREATIONAL DRUG USE Return to the ER for any new or worsening concerns. Referrals: Jaime Austin MD [Staff Provider] - Salas Shaffer MD [Staff Provider] - <Salas Shaffer - Last Filed: 07/30/17 16:29> Provider - Provider Date of Admission: 07/29/17 00:58 Attending physician: Salas Shaffer MD Hospital Course - Lab Results Lab Results: Most Recent Lab Values WBC 9.3 10^3/ul (4.5-11.0) 07/30/17 06:00 RBC 3.75 10^6/uL (3.5-6.1) 07/30/17 06:00 Hgb 12.4 g/dL (12.0-16.0) 07/30/17 06:00 Hct 36.4 % (36.0-48.0) 07/30/17 06:00 MCV 97.1 fl (80.0-105.0) 07/30/17 06:00 MCH 33.1 pg (25.0-35.0) 07/30/17 06:00 MCHC 34.1 g/dl (31.0-37.0) 07/30/17 06:00 RDW 12.7 % (11.5-14.5) 07/30/17 06:00 Plt Count 323 10^3/uL (120.0-450.0) 07/30/17 06:00 MPV 9.2 fl (7.0-11.0) 07/30/17 06:00 Gran % 58.9 % (50.0-68.0) 07/30/17 06:00 Lymph % (Auto) 31.6 % (22.0-35.0) 07/30/17 06:00 [place] % (Auto) 7.7 % (1.0-6.0) H 07/30/17 06:00 Eos % (Auto) 1.4 % (1.5-5.0) L 07/30/17 06:00 Baso % (Auto) 0.4 % (0.0-3.0) 07/30/17 06:00 Gran # 5.47 (1.4-6.5) 07/30/17 06:00 Lymph # (Auto) 2.9 (1.2-3.4) 07/30/17 06:00 [place] # (Auto) 0.7 (0.1-0.6) H 07/30/17 06:00 Eos # (Auto) 0.1 (0.0-0.7) 07/30/17 06:00 Baso # (Auto) 0.04 K/mm3 (0.0-2.0) 07/30/17 06:00 Sodium 142 mmol/L (132-148) 07/30/17 06:00 Potassium 3.5 mmol/L (3.6-5.0) L 07/30/17 06:00 Chloride 107 mmol/L (98-107) 07/30/17 06:00 Carbon Dioxide 23 mmol/L (21-33) 07/30/17 06:00 Anion Gap 15 (10-20) 07/30/17 06:00 BUN 9 mg/dL (7-21) 07/30/17 06:00 Creatinine 0.6 mg/dl (0.7-1.2) L 07/30/17 06:00 Est GFR ( Amer) > 60 07/30/17 06:00 Est GFR (Non-Af Amer) > 60 07/30/17 06:00 Random Glucose 92 mg/dL (70-110) 07/30/17 06:00 Hemoglobin A1c 6.0 % (4.2-6.5) 07/29/17 07:30 Fructosamine 242 umol/L (190-270) 07/29/17 07:30 Lactic Acid 0.7 mmol/L (0.7-2.1) 07/29/17 08:50 Calcium 8.6 mg/dL (8.4-10.5) 07/30/17 06:00 Magnesium 1.9 mg/dL (1.7-2.2) 07/30/17 06:00 Total Bilirubin 0.7 mg/dL (0.2-1.3) 07/30/17 06:00 Direct Bilirubin 0.1 mg/dL (0.0-0.4) 07/30/17 06:00 AST 27 U/L (14-36) 07/30/17 06:00 ALT 24 U/L (7-56) 07/30/17 06:00 Alkaline Phosphatase 62 U/L (38-126) 07/30/17 06:00 Total Protein 6.5 g/dL (5.8-8.3) 07/30/17 06:00 Albumin 3.8 g/dL (3.0-4.8) 07/30/17 06:00 Globulin 2.8 gm/dL 07/30/17 06:00 Albumin/Globulin Ratio 1.3 (1.1-1.8) 07/30/17 06:00 Triglycerides 60 mg/dL (35-160) 07/29/17 07:30 Cholesterol 283 mg/dL (130-200) H 07/29/17 07:30 LDL Cholesterol Direct 182 mg/dL (0-129) H 07/29/17 07:30 HDL Cholesterol 51 mg/dL (29-60) 07/29/17 07:30 Lipase 49 U/L (23-300) 07/28/17 20:00 25-OH Vitamin D Total 19.5 NG/ML (30.0-100.0) L 07/29/17 07:30 Procalcitonin 0.05 NG/ML (0.19-0.49) L 07/29/17 07:30 Free T4 1.17 ng/dL (0.78-2.19) 07/29/17 07:30 Thyroxine (T4) 7.7 ug/dL (5.5-11.0) 07/29/17 07:30 TSH 3rd Generation 0.59 mIU/mL (0.46-4.68) 07/29/17 07:30 Urine Color Yellow (YELLOW) 07/28/17 22:22 Urine Appearance Clear (CLEAR) 07/28/17 22:22 Urine pH 7.5 (4.7-8.0) 07/28/17 22:22 Ur Specific [place] 1.010 (1.005-1.035) 07/28/17 22:22 Urine Protein Trace mg/dL (<30 mg/dL) H 07/28/17 22:22 Urine Glucose (UA) 100 mg/dL (NEGATIVE) H 07/28/17 22:22 Urine Ketones 40 mg/dL (NEGATIVE) H 07/28/17 22:22 Urine Blood Trace-intact (NEGATIVE) H 07/28/17 22:22 Urine Nitrate Negative (NEGATIVE) 07/28/17 22:22 Urine Bilirubin Negative (NEGATIVE) 07/28/17 22:22 Urine Urobilinogen 0.2 E.U./dL (<1 E.U./dL) 07/28/17 22:22 Ur Leukocyte Esterase Negative Pia/uL (NEGATIVE) 07/28/17 22:22 Urine RBC 1 - 3 /hpf (0-2) 07/28/17 22:22 Urine WBC Negative /hpf (0-6) 07/28/17 22:22 Ur Epithelial Cells 1 - 3 /hpf (0-5) 07/28/17 22:22 Urine Bacteria Trace (NEG) 07/28/17 22:22 Urine HCG, Qual Negative (NEGATIVE) 07/29/17 09:00 Urine Opiates Screen Positive (NEGATIVE) H 07/29/17 13:15 Urine Methadone Screen Negative (NEGATIVE) 07/29/17 13:15 Ur Barbiturates Screen Negative (NEGATIVE) 07/29/17 13:15 Ur Phencyclidine Scrn Negative (NEGATIVE) 07/29/17 13:15 Ur Amphetamines Screen Negative (NEGATIVE) 07/29/17 13:15 U Benzodiazepines Scrn Negative (NEGATIVE) 07/29/17 13:15 U Oth Cocaine Metabols Negative (NEGATIVE) 07/29/17 13:15 U Cannabinoids Screen Positive (NEGATIVE) H 07/29/17 13:15 RPR Nonreactive (NONREACTIVE) 07/29/17 10:30 Hepatitis A IgM Ab Negative (NEGATIVE) 07/29/17 10:30 Hep Bs Antigen Negative (NEGATIVE) 07/29/17 10:30 Hep B Core IgM Ab Negative (NEGATIVE) 07/29/17 10:30 Hepatitis C Antibody Negative (NEGATIVE) 07/29/17 10:30 HIV 1&2 Ag/Ab, 4th Gen Nonreactive (Nonreactive) 07/29/17 10:30 Attending/Attestation - Attestation I have personally seen and examined this patient.: Yes I have fully participated in the care of the patient.: Yes I have reviewed all pertinent clinical information, including history, physical exam and plan: Yes
--- NOTE | 2017-07-30 16:17 | CP.PCM.PCO ---
Physician Communication Note - Physician Communication Note Physician Communication Note: pt was d/c before this writer producer evaluation
--- NOTE | 2017-07-31 09:14 | HP ---
HISTORY AND PHYSICAL ADDENDUM DATE OF EXAM: 07/29/2017 HISTORY OF PRESENT ILLNESS: A 56--year-old female who presented to the emergency room complaining according to the triage notes, right lower quadrant pain, nausea, vomiting started today. According to the ER physician evaluation, the patient presented complaining of right lower quadrant pain associated with nausea, vomiting and 1 bowel movement yesterday. The patient was examined with the medical aides teacher. Patient's vital signs, diagnostic data, imaging data all reviewed. ADMISSION IMPRESSION AND PLAN: 1. Nausea, vomiting and right lower quadrant abdominal pain. Etiology undetermined. 2. Low grade fever of 99.4. 3. History of hypertension. 4. Leukocytosis. 5. Hypokalemia. 6. Hyperglycemia. 7. Hypercholesterolemia with elevated LDL. 8. Trace proteinuria, glycosuria, ketonuria, microscopic hematuria, bacteriuria. 9. History of partial hysterectomy. 10. Right ovarian complex cyst with internal septation and hypoechoic debris. 11. Nonvisualized left ovary. 12. Hepatomegaly. 13. Left adrenal 2 cm nodule, indeterminate. 14. Right kidney low density subcentimeter lesions. 15. Questionable and possible colitis with descending colon and sigmoid colon wall thickening. 16. Right ovarian septated cystic lesion and complex cyst. 17. Possible left adrenal hyperplasia or adenoma. 18. Septated right adnexal cyst 4.6 x 5.4 cm. 19. History of hysterectomy. 20. Partial hysterectomy. 21. Right ovarian complex cyst with internal septation and posterior hypoechoic debris. 22. Nonvisualized left ovary. 23. History of chronic obstructive pulmonary disease. 24. History of nicotine dependence. 25. History of colonoscopy and colonic polyps. 26. History of nicotine, alcohol and marijuana use. 27. History of treated syphilis and treated gonorrhea. 28. Questionable history of hypertension and congestive heart failure. 29. History of bipolar disorder with manic disorder. 30. History of colonoscopy done with history of colonic polyp. 31. Hypokalemia. PLAN AT THIS TIME: The patient is admitted to [facility]. The patient has been ordered serial labs. The patient's potassium supplementation is ordered. Consultation; Gastroenterology. Blood and urine culture sent. Current consultation, Gastroenterology and Psychiatry. CURRENT MEDICATIONS: Flagyl 500 IV every 8, heparin 5000 subcu every 12 for DVT prophylaxis, MiraLax 17 g daily, Protonix 40 mg daily, Rocephin 1 g IV daily, IV 4.9 normal saline at 100 mL an hour, Toradol 15 mg IV every 6 p.r.n., Xopenex nebulizer 0.63 mg every 6 hours, Zofran 4 mg IV every 4 hours. Patient was started on nicotine patch and thiamine IV daily. At present, we are awaiting for further evaluation by Gastroenterology and Psychiatry. The patient has been ordered out of bed, Lisette Kirk. The patient has been updated about her condition, diagnoses, need for further diagnostic therapeutic intervention was discussed and explained to the patient at length in layman's language, which she acknowledged and understand. The patient was extensively explained about all the details in layman's language and all question and concern answered. Dictated and electronically signed, not read. Salas Shaffer MD
[2017-07-31 09:59] LABS: GLYCOMARK(R) 15.4 mcg/mL (7.5-28.4)
--- NOTE | 2017-07-31 10:08 | DS ---
HISTORY OF PRESENT ILLNESS: The patient was seen in room 378, bed 1. The patient is out of bed to chair. The patient denies any nausea, denies any vomiting, denies any diarrhea, denies any abdominal pain, denies any dysuria or frequency. Since yesterday evening, the patient has been requesting to be discharged and also threatening to sign out against medical advise. The patient was advised that the patient needs to at least stay until today morning for availability of the patient's further diagnostic data and results, for which the patient stayed. Even in the morning, the patient had threatened to sign out against medical advise, which was advised against. The patient now is seen ambulating in the room. PHYSICAL EXAMINATION: VITAL SIGNS: T-max 99.4, down to 98.4 to 98; heart rate 74, 68; blood pressure 131/73, 157/77; respirations 17 to 19; O2 sat 97% to 98%. HEENT: Head: Normocephalic, atraumatic. HEENT examination shows pink conjunctivae. Anicteric sclerae. Dry oral mucosa. NECK: No neck rigidity. CHEST: Kyphosis. LUNGS: Show no rales, crackles or wheezing. CARDIOVASCULAR: S1 and S2, regular rhythm. ABDOMEN: Soft, nontender. No costovertebral angle tenderness. GENITALIA: Female. RECTAL: Deferred. EXTREMITIES: Show no pitting edema, no calf tenderness, no Homans' sign. NEUROLOGIC: The patient is alert, awake, oriented x3. Cranial nerves II-XII intact and limited. Gait examination is independent. VASCULAR: Palpable pulses. MUSCULOSKELETAL: Shows a body mass index of 23.6. DIAGNOSTICS: 07/30/2017, WBC 9.3, hemoglobin/hematocrit 12.4/36.4, platelets 323. Sodium 142; potassium is 3.5 which is low; chloride 107; CO2 23; anion gap 15; BUN 9; creatinine 0.6. GFR greater than 60, glucose 92, hemoglobin A1c is 6. LFTs are normal. Magnesium 1.9. Vitamin D 25-hydroxy 19.5. Procalcitonin level is negative. Cholesterol 283, LDL 182. Urine drug screen is positive for opiates and positive for marijuana. During this hospitalization, the patient received only one dose of morphine on 07/28/2017, 2 mg. RPR is nonreactive. Hepatitis A IgM is negative, B surface antigen negative, B core antibody negative, hepatitis C antibody negative. HIV-1 and 2 fourth generation is nonreactive. Blood and urine cultures are negative. FINAL IMPRESSION, PLAN AND DISCHARGE DIAGNOSES: 1. Status post intractable nausea and vomiting, probably secondary to marijuana abuse. 2. Nonspecific sigmoid and descending colon thickening, probably due to under distention and lack of contrast versus questionable colitis. 3. Transient leukocytosis. 4. Hypokalemia. 5. Hypercholesteremia with elevated LDL. 6. Hypovitaminosis D. 7. Prediabetes with hemoglobin A1c of 6 and hyperglycemia. 8. Trace proteinuria, glycosuria, ketonuria, microscopic hematuria and bacteriuria. 9. Urine drug screen positive for marijuana and opiates. 10. History of nicotine addiction. 11. History of hypertension and questionable congestive heart failure, history of bipolar disorder, history of nicotine, alcohol and marijuana use. 12. History of hysterectomy. 13. History of chronic obstructive pulmonary disease. At present, the patient has been cleared for discharge. The patient's discharge medications are as follows: Cipro 500 twice a day, Drisdol 50,000 units weekly. The patient is to resume hydrochlorothiazide 12.5 mg daily, Flagyl 500 three times a day, nicotine 21 mg daily, MiraLax 17 g daily, thiamine 100 mg daily. At present, the patient is to be discharged home. We will follow up with primary medical doctor, Psychiatry, Gynecology within 1 week. The patient to release all records from this hospitalization to PMD, Psychiatry and Gynecology. The patient was advised to stop alcohol, stop smoking, stop recreational drug use. Time spent in the entire discharge process is more than 45 minutes. Dictated and electronically signed, not read. Salas Shaffer MD
== END 2017-07-30 12:20 | disposition home or self-care (01) ==
LOC: ED 19:49 → INTOOBSV 07-29 00:58 → ERH 07-29 00:58 → 3RSO 07-29 02:46
PROVIDERS: ADMIT Internal Medicine; ATTEND Internal Medicine
DX: K52.9 Noninfective gastroenteritis and colitis, unspecified (principal); I11.0 Hypertensive heart disease with heart failure; I50.9 Heart failure, unspecified; F31.9 Bipolar disorder, unspecified; E78.00 Pure hypercholesterolemia, unspecified; N83.291 Other ovarian cyst, right side; F17.210 Nicotine dependence, cigarettes, uncomplicated; J44.9 Chronic obstructive pulmonary disease, unspecified; E87.6 Hypokalemia; F12.90 Cannabis use, unspecified, uncomplicated; R16.0 Hepatomegaly, not elsewhere classified; R73.9 Hyperglycemia, unspecified; R50.9 Fever, unspecified; Z86.19 Personal history of other infectious and parasitic diseases; Z86.010 Personal history of colon polyps
CPT/HCPCS: 36415; 74177; 76830; 80053; 80061; 80074; 81001; 82248; 82306; 82985; 83036; 83605; 83690; 83735; 84145; 84378; 84439; 84443; 84703; 85025; 85027; 86592; 87040; 87086; 87389; 87491; 87591; 93005; 94640; 94760; 96361; 96365; 96366; 96367; 96372; 96375; 96376; 99284; C9113; G0378; G0480; J0696; J1644; J1885; J2270; J2405; J3411; J3480; J7030; Q9967

== ENCOUNTER 2017-12-10 13:05 | Inpatient (IN) | payer MEDICARE, MEDICAID ==
--- NOTE | 2017-12-10 13:20 | ED PDOC ---
Arrival/HPI - General Chief Complaint: GI Problem Time Seen by Provider: 12/10/17 13:06 Historian: Patient, Spouse - History of Present Illness Narrative History of Present Illness (Text): 12/10/17 13:50 A 57 year old female, whose past medical history includes CHF, COPD, hysterectomy, substance abuse, and colonic polyps, presents to the emergency department complaining of frequent vomiting and abdominal pain starting this morning. Patient is currently actively vomiting. She is able to speak in full sentences to answer questions. Patient mentions having soft bowel movement all day. Patient notes also experiencing chills and rhinorrhea, however denies any fever, or any other complaints at this time. No PMD Past Medical History - Provider Review Nursing Documentation Reviewed: Yes - Infectious Disease Hx of Infectious Diseases: None - Reproductive Menopause: No - Cardiac Hx Cardiac Disorders: Yes Hx Congestive Heart Failure: Yes - Pulmonary Hx Chronic Obstructive Pulmonary Disease (COPD): Yes - Musculoskeletal/Rheumatological Hx Falls: No Other/Comment: PINCH NERVE IN THE BACK - Psychiatric Hx Substance Use: Yes - Surgical History Hx Hysterectomy: Yes Family/Social History - Physician Review Nursing Documentation Reviewed: Yes Family/Social History: No Known Family HX Smoking Status: Light Smoker < 10 Cigarettes Daily Hx Alcohol Use: Yes Hx Substance Use: Yes Substance used: Marijuana Allergies/Home Meds Allergies/Adverse Reactions: Allergies No Known Allergies Allergy (Verified 07/28/17 19:54) Home Medications: Home Meds Medication Instructions Recorded Confirmed Hydrochlorothiazide [Microzide] 12.5 mg PO DAILY 07/28/17 07/29/17 Review of Systems - Physician Review All systems were reviewed & negative as marked: Yes - Review of Systems Constitutional: Night Sweats. absent: Fevers ENT: Rhinorrhea Gastrointestinal: Abdominal Pain, Vomiting (frequent and actively here in the ER) Physical Exam Vital Signs Reviewed: Yes Vital Signs Temp Pulse Resp BP Pulse Ox 12/10/17 13:09 98.6 F 84 18 132/84 99 Temperature: Afebrile Blood Pressure: Normal Pulse: Regular Respiratory Rate: Normal Appearance: Positive for: Non-Toxic, Ill-Appearing, Uncomfortable, Other (patient is actively vomiting at this time; and is able to speak in full sentences.) Pain Distress: None Mental Status: Positive for: Alert and Oriented X 3 - Systems Exam Head: Present: Atraumatic, Normocephalic Pupils: Present: PERRL Extroacular Muscles: Present: EOMI Conjunctiva: Present: Normal Mouth: Present: Dry Neck: Present: Normal Range of Motion Respiratory/Chest: Present: Clear to Auscultation, Good Air Exchange. No: Respiratory Distress, Accessory Muscle Use Cardiovascular: Present: Regular Rate and Rhythm, Normal S1, S2. No: Murmurs Abdomen: Present: Tenderness (periumbilical tenderness). No: Distention, Peritoneal Signs Back: Present: Normal Inspection Upper Extremity: Present: Normal Inspection. No: Cyanosis, Edema Lower Extremity: Present: Normal Inspection. No: Edema Neurological: Present: GCS=15, CN II-XII Intact, Speech Normal Skin: Present: Warm, Dry, Normal Color. No: Rashes Psychiatric: Present: Alert, Oriented x 3, Normal Insight, Normal Concentration Medical Decision Making ED Course and Treatment: 12/10/17 13:53 Impression: 57 year old female with frequent vomiting and abdominal pain. Plan: -- Abd/Pelvis CT -- Labs -- Urinalysis -- IV Fluids -- Zofran -- Reassess and disposition Prior Visits: Notes and results from previous visits were reviewed. Patient was last seen in the emergency department on 07/28/2017 for RLQ pain associated with nausea and frequent vomiting. Patient was admitted for colitis. Progress Notes: 12/10/17 14:17 Patient has been given Zofran and still continues to vomit. Patient requesting medication for pain. Reglan and Morphine ordered for patient. 12/10/17 14:41 Patient's labs reveal mild hypokalemia at 3.4, LFT's are normal, as is her Lipase levels. Still awaiting toxic screening lab work. 12/10/17 15:02 Traces of marijuana found in urine toxic screening, which is likely what is causing patient to have symptoms. 12/10/2017 15:07 Abd/Pelvis CT IMPRESSION: There is mild mural thickening in the transverse descending and sigmoid colon which could represent colitis. There is lack of distension of the colon. Dictator: Miguel Fernandez MD 12/10/17 15:38 Upon reassessment, patient's results have been discussed with patient. Patient continues to feel pain and vomit. 12/10/17 16:44 Discussed case with , who is aware of and agrees to admit patient to med-surg under her service. - Lab Interpretations I have reviewed the lab results: Yes - Scribe Statement The provider has reviewed the documentation as recorded by the Odell Segura Provider Scribe Attestation: All medical record entries made by the Scribe were at my direction and personally dictated by me. I have reviewed the chart and agree that the record accurately reflects my personal performance of the history, physical exam, medical decision making, and the department course for this patient. I have also personally directed, reviewed, and agree with the discharge instructions and disposition. Disposition/Present on Arrival - Present on Arrival History of DVT/PE: No History of Uncontrolled Diabetes: No Urinary Catheter: No History of Decub. Ulcer: No History Surgical Site Infection Following: None - Disposition Disposition Time: 16:44 Referrals: PCP,NO [Primary Care Provider] - Follow up with primary Forms: [employer] (Pashto)
[2017-12-10 13:26] VITALS: O2SAT 99
[2017-12-10] MEDS ORDERED: Sodium Chloride 0.9% 1,000 ML IV STA (13:27)
[2017-12-10 13:56] LABS: BASO # 0.03 K/mm3 (0.0-2.0); BASO % 0.3 % (0.0-3.0); EOS % 0.2 % (1.5-5.0); GRAN # 7.98 (1.4-6.5); GRAN % 78.6 % (50.0-68.0); HEMOGLOBIN 15.3 g/dL (12.0-16.0); LYMPH # 1.8 (1.2-3.4); LYMPH % 17.4 % (22.0-35.0); MEAN CELL VOLUME 98.2 fl (80.0-105.0); MEAN CORPUSCULAR HEMOGLOBIN 34.1 pg (25.0-35.0); MEAN CORPUSCULAR HGB CONC 34.7 g/dl (31.0-37.0); MEAN PLATELET VOLUME 9.5 fl (7.0-11.0); MONO # 0.4 (0.1-0.6); MONO % 3.5 % (1.0-6.0); RBC 4.49 10^6/uL (3.5-6.1); RED CELL DISTRIBUTION WIDTH 12.6 % (11.5-14.5); WHITE BLOOD COUNT 10.2 10^3/uL (4.5-11.0)
[2017-12-10 14:01] LABS: ALB/GLOB RATIO 1.4 (1.1-1.8); ALBUMIN 5.1 g/dL (3.0-4.8); ALT/SGPT 28 U/L (7-56); AST/SGOT 35 U/L (14-36); BLOOD UREA NITROGEN 15 mg/dL (7-21); CALCIUM 10.4 mg/dL (8.4-10.5); GFR NON-AFRICAN AMERICAN > 60; LIPASE 94 U/L (23-300)
[2017-12-10] MEDS ORDERED: Iohexol 350 MG/100 ML VIAL ONE (14:07)
[2017-12-10 14:17] LABS: URINE BILIRUBIN NEGATIVE (NEGATIVE); URINE BLOOD NEGATIVE (NEGATIVE); URINE GLUCOSE (UA) NEGATIVE (NEGATIVE); URINE LEUKOCYTE ESTERASE NEGATIVE Leu/uL (NEGATIVE); URINE PROTEIN 30 mg/dL (<30 mg/dL); URINE UROBILINOGEN 0.2 E.U./dL (<1 E.U./dL)
[2017-12-10] MEDS ORDERED: Morphine 4 mg/ml ISec IVP STA ×2 (14:17→16:59)
[2017-12-10 14:19] LABS: URINE APPEARANCE SL CLOUDY (CLEAR); URINE COLOR YELLOW (YELLOW)
[2017-12-10 14:23] LABS: URINE RBC NEGATIVE /hpf (0-2); URINE WBC 0 - 2 /hpf (0-6)
[2017-12-10 14:24] LABS: URINE BACTERIA FEW (NEG)
[2017-12-10 14:45] LABS: BARBITURATES, UR NEGATIVE (NEGATIVE); BENZODIAZEPINES, UR NEGATIVE (NEGATIVE); OPIATES, UR NEGATIVE (NEGATIVE); PHENCYCLIDINE, UR NEGATIVE (NEGATIVE)
--- NOTE | 2017-12-10 15:11 | CT ---
Date of service: 12/10/2017 PROCEDURE: CT Abdomen and Pelvis with contrast HISTORY: vomiting COMPARISON: CT 07/28/2017 TECHNIQUE: Contrast dose: Radiation dose: Total exam DLP = 247.68 mGy-cm. This CT exam was performed using one or more of the following dose reduction techniques: Automated exposure control, adjustment of the mA and/or kV according to patient size, and/or use of iterative reconstruction technique. FINDINGS: LOWER THORAX: Unremarkable. LIVER: Unremarkable. No gross lesion or ductal dilatation. GALLBLADDER AND BILE DUCTS: Unremarkable. PANCREAS: Unremarkable. No gross lesion or ductal dilatation. SPLEEN: Unremarkable. ADRENALS: The left adrenal gland has a thickened appearance consistent with hyperplasia or adenoma. This is unchanged KIDNEYS AND URETERS: Unremarkable. No hydronephrosis. No solid mass. VASCULATURE: Unremarkable. No aortic aneurysm. No aortic atherosclerotic calcification or mural plaque present. BOWEL: There is mild mural thickening in the transverse descending and sigmoid colon which could represent colitis. There is lack of distension of the colon APPENDIX: Normal appendix. PERITONEUM: Unremarkable. No free fluid. No free air. LYMPH NODES: Unremarkable. No enlarged lymph nodes. BLADDER: Unremarkable. REPRODUCTIVE: There is a septated right adnexal cyst measuring 4.3 x 4.6 cm. This is unchanged. Previous hysterectomy BONES: No acute fracture. OTHER FINDINGS: None. IMPRESSION: There is mild mural thickening in the transverse descending and sigmoid colon which could represent colitis. There is lack of distension of the colon
--- NOTE | 2017-12-10 17:38 | CP.PCM.HP ---
<Jb Velazquez - Last Filed: 12/10/17 17:55> History of Present Illness - History of Present Illness History of Present Illness: Jb Velazquez PGY1 History and Physical for Dr Shelton Pt is a 57yo female with a PMH of HTN who presents to the ED complaining of nausea and vomiting which started this morning. Pt states she has not been able to keep any food down with out vomiting. Pt tried taking Pepto Bismol which did not help improve her symptoms very much. Pt denies eating anything new or having any changes in her diet. Pt states she had a BM today which was soft. Pt states she has had chronic crampy abdominal pain for the past 6 months. Pt states she follows up with her GI physician. Pt states she uses marijuana twice per day. Pt states she has been vomiting, but denies blood in the vomitus. Pt states the abdominal pain is located in the middle of her abdomen. A 12 point ROS was o btained and added to the HPI where appropriate. PMH: HTN PSH: Hysterectomy 2011 FH: denies any significant disease SH: Tobacco 5 Allergies: denies Medications: HCTZ Present on Admission - Present on Admission Any Indicators Present on Admission: No Review of Systems - Review of Systems Review of Systems: a 12 point ROS was obtained and added to the HPI where appropriate Past Patient History - Infectious Disease Hx of Infectious Diseases: None - Past Social History Smoking Status: Light Smoker < 10 Cigarettes Daily - CARDIAC Hx Cardiac Disorders: Yes Hx Congestive Heart Failure: Yes - PULMONARY Hx Chronic Obstructive Pulmonary Disease (COPD): Yes - NEUROLOGICAL Hx Neurological Disorder: No - HEENT Hx HEENT Problems: No - RENAL Hx Chronic Kidney Disease: No - ENDOCRINE/METABOLIC Hx Endocrine Disorders: No - HEMATOLOGICAL/ONCOLOGICAL Hx Blood Disorders: No - INTEGUMENTARY Hx Dermatological Problems: No - MUSCULOSKELETAL/RHEUMATOLOGICAL Hx Falls: No Other/Comment: PINCH NERVE IN THE BACK - GASTROINTESTINAL Hx Gastrointestinal Disorders: Yes - GENITOURINARY/GYNECOLOGICAL Hx Genitourinary Disorders: Yes Hx Urinary Tract Infection: Yes - PSYCHIATRIC Hx Substance Use: Yes - SURGICAL HISTORY Hx Hysterectomy: Yes Meds Allergies/Adverse Reactions: Allergies Allergy/AdvReac Type Severity Reaction Status Date / Time No Known Allergies Allergy Verified 07/28/17 19:54 Physical Exam - Constitutional Appears: Non-toxic, No Acute Distress - Head Exam Head Exam: ATRAUMATIC, NORMAL INSPECTION, NORMOCEPHALIC - Eye Exam Eye Exam: EOMI - ENT Exam ENT Exam: Mucous Membranes Moist - Respiratory Exam Respiratory Exam: Clear to Auscultation Bilateral, NORMAL BREATHING PATTERN. absent: Wheezes - Cardiovascular Exam Cardiovascular Exam: RRR, +S1, +S2. absent: Diastolic murmur, Systolic Murmur - GI/Abdominal Exam GI & Abdominal Exam: Normal Bowel Sounds, Soft, Tenderness Additional comments: tenderness to palpation, middle abdomen - Extremities Exam Extremities exam: Positive for: pedal pulses present. Negative for: calf tenderness, pedal edema - Neurological Exam Neurological exam: Alert, Oriented x3 - Psychiatric Exam Psychiatric exam: Normal Affect, Normal Mood - Skin Skin Exam: Dry, Intact, Warm Results - Vital Signs Recent Vital Signs: Last Vital Signs Temp 98.6 F 12/10/17 13:09 Pulse 81 12/10/17 16:08 Resp 18 12/10/17 16:08 BP 167/79 H 12/10/17 16:08 Pulse Ox 99 12/10/17 16:08 - Labs Result Diagrams: 12/10/17 13:40 12/10/17 13:40 Labs: Laboratory Results - last 24 hr 12/10/17 12/10/17 12/10/17 13:40 13:40 13:55 WBC 10.2 RBC 4.49 Hgb 15.3 D Hct 44.1 MCV 98.2 MCH 34.1 MCHC 34.7 RDW 12.6 Plt Count 432 MPV 9.5 Gran % 78.6 H Lymph % (Auto) 17.4 L [place] % (Auto) 3.5 Eos % (Auto) 0.2 L Baso % (Auto) 0.3 Gran # 7.98 H Lymph # (Auto) 1.8 [place] # (Auto) 0.4 Eos # (Auto) 0.0 Baso # (Auto) 0.03 Sodium 140 Potassium 3.4 L Chloride 101 Carbon Dioxide 26 Anion Gap 16 BUN 15 Creatinine 0.8 Est GFR ( Amer) > 60 Est GFR (Non-Af Amer) > 60 Random Glucose 166 H Calcium 10.4 Magnesium 2.1 Total Bilirubin 0.6 AST 35 ALT 28 Alkaline Phosphatase 113 Total Protein 8.8 H Albumin 5.1 H Globulin 3.7 Albumin/Globulin Ratio 1.4 Lipase 94 Urine Color Yellow Urine Appearance Sl cloudy Urine pH 8.0 Ur Specific [place] 1.020 Urine Protein 30 H Urine Glucose (UA) Negative Urine Ketones 15 H Urine Blood Negative Urine Nitrate Negative Urine Bilirubin Negative Urine Urobilinogen 0.2 Ur Leukocyte Esterase Negative Urine RBC Negative Urine WBC 0 - 2 Ur Epithelial Cells 10 - 12 Urine Bacteria Few Urine Opiates Screen Urine Methadone Screen Ur Barbiturates Screen Ur Phencyclidine Scrn Ur Amphetamines Screen U Benzodiazepines Scrn U Oth Cocaine Metabols U Cannabinoids Screen 12/10/17 14:00 WBC RBC Hgb Hct MCV MCH MCHC RDW Plt Count MPV Gran % Lymph % (Auto) [place] % (Auto) Eos % (Auto) Baso % (Auto) Gran # Lymph # (Auto) [place] # (Auto) Eos # (Auto) Baso # (Auto) Sodium Potassium Chloride Carbon Dioxide Anion Gap BUN Creatinine Est GFR ( Amer) Est GFR (Non-Af Amer) Random Glucose Calcium Magnesium Total Bilirubin AST ALT Alkaline Phosphatase Total Protein Albumin Globulin Albumin/Globulin Ratio Lipase Urine Color Urine Appearance Urine pH Ur Specific [place] Urine Protein Urine Glucose (UA) Urine Ketones Urine Blood Urine Nitrate Urine Bilirubin Urine Urobilinogen Ur Leukocyte Esterase Urine RBC Urine WBC Ur Epithelial Cells Urine Bacteria Urine Opiates Screen Negative Urine Methadone Screen Negative Ur Barbiturates Screen Negative Ur Phencyclidine Scrn Negative Ur Amphetamines Screen Negative U Benzodiazepines Scrn Negative U Oth Cocaine Metabols Negative U Cannabinoids Screen Positive H Assessment & Plan - Assessment and Plan (Free Text) Assessment: Pt is a 57yo female with a PMH of HTN who presents to the ED complaining of nausea and vomiting which started this morning. Pt states she has had crampy abdominal pain for the past 6 months. Plan: Colitis, intractable nausea and vomiting - rocephin - flagyl - pain control morphine 1mg IVP q6 - zofran for nausea/ vomiting - NPO except meds - CT abdomen and pelvis: mild mural thickening in the transverse descending and sigmoid colon which could represent colitis. There is lack of distention of the colon - GI consulted, Dr Andersen Hypokalemia - 3.4 on admission - replete PRN HTN - hold HCTZ for now - continue to monitor Hx Ovarian Cyst - pt followed up with her PMD in the past Ppx - lovenox - pepcid Pt seen, examined, assessment and plan discussed with Dr Shelton. Jb Velazquez PGY1 - Date & Time Date: 12/10/17 Time: 06:00 <Gianni Shelton - Last Filed: 12/11/17 15:50> Results - Vital Signs Recent Vital Signs: Last Vital Signs Temp 98.1 F 12/10/17 21:44 Pulse 85 12/10/17 21:44 Resp 20 12/11/17 00:19 BP 184/104 H 12/10/17 21:44 Pulse Ox 99 12/10/17 21:44 - Labs Result Diagrams: 12/11/17 07:00 12/11/17 07:00 Labs: Laboratory Results - last 24 hr 12/11/17 12/11/17 07:00 07:00 WBC 9.0 RBC 3.88 Hgb 12.8 D Hct 38.7 MCV 99.7 MCH 33.0 MCHC 33.1 RDW 12.9 Plt Count 349 MPV 9.1 Gran % 67.3 Lymph % (Auto) 25.0 [place] % (Auto) 7.3 H Eos % (Auto) 0.2 L Baso % (Auto) 0.2 Gran # 6.06 Lymph # (Auto) 2.3 [place] # (Auto) 0.7 H Eos # (Auto) 0.0 Baso # (Auto) 0.02 Sodium 141 Potassium 3.5 L Chloride 107 Carbon Dioxide 24 Anion Gap 14 BUN 13 Creatinine 0.7 Est GFR ( Amer) > 60 Est GFR (Non-Af Amer) > 60 Random Glucose 96 Calcium 9.3 Total Bilirubin 0.4 AST 26 ALT 24 Alkaline Phosphatase 75 Total Protein 7.2 Albumin 4.1 Globulin 3.1 Albumin/Globulin Ratio 1.3 Attending/Attestation - Attestation I have personally seen and examined this patient.: Yes I have fully participated in the care of the patient.: Yes I have reviewed all pertinent clinical information: Yes Notes (Text): 12/11/17 15:46 Medical record note made by the resident after discussion with my direction and input after the patient was personally seen and examined by me. I have reviewed the chart and agree that the record accurately reflects by personal performance of the history, physical exam, data review, and medical decision-making, in the course for the patient. I have also personally directed the plan of care. 57yo female with a PMH of HTN,Hyperlipidemia and drug abuse is admitted with abdominal pain associated with Nausea or vomiting.CT scan of abdomen and pelvis showed transverse and descending colitis. We will keep patient NPO except medication, IV hydration ,Zofran and IV antibiotics.We will get GI consult. Management plan was discussed in detail with patient. Education was provided. 12/11/17 15:48
[2017-12-10] MEDS: Sodium Chloride 0.9% 1,000 ML IV SCH ×2 (18:00→20:17)
[2017-12-10] MEDS ORDERED: Potassium Chloride 20 mEq ER Tab PO STA (18:00)
[2017-12-10] MEDS: Morphine 2 mg/ml ISec IVP PRN (20:16)
[2017-12-10] MEDS: metroNIDAZOLE IV 500 mg/100 ml 500 MG/100 ML BAG IVPB SCH (21:22)
[2017-12-10 21:45] VITALS: BP 184/104; PULSE 85; RESP 20; TEMP 98.1
[2017-12-11 01:20] VITALS: BMI 21.7
[2017-12-11] MEDS: metroNIDAZOLE IV 500 mg/100 ml 500 MG/100 ML BAG IVPB SCH (06:32)
[2017-12-11 07:31] LABS: BASO # 0.02 K/mm3 (0.0-2.0); BASO % 0.2 % (0.0-3.0); EOS % 0.2 % (1.5-5.0); GRAN # 6.06 (1.4-6.5); GRAN % 67.3 % (50.0-68.0); LYMPH # 2.3 (1.2-3.4); MEAN CELL VOLUME 99.7 fl (80.0-105.0); MEAN CORPUSCULAR HGB CONC 33.1 g/dl (31.0-37.0); MEAN PLATELET VOLUME 9.1 fl (7.0-11.0); MONO # 0.7 (0.1-0.6); MONO % 7.3 % (1.0-6.0); RBC 3.88 10^6/uL (3.5-6.1); RED CELL DISTRIBUTION WIDTH 12.9 % (11.5-14.5)
[2017-12-11 07:35] LABS: HEMOGLOBIN 12.8 g/dL (12.0-16.0)
[2017-12-11 07:43] LABS: ALB/GLOB RATIO 1.3 (1.1-1.8); ALBUMIN 4.1 g/dL (3.0-4.8); ALT/SGPT 24 U/L (7-56); AST/SGOT 26 U/L (14-36); BLOOD UREA NITROGEN 13 mg/dL (7-21); CALCIUM 9.3 mg/dL (8.4-10.5); GFR NON-AFRICAN AMERICAN > 60
[2017-12-11] MEDS ORDERED: Enoxaparin 40 mg Syringe SC SCH (10:00)
[2017-12-11] MEDS ORDERED: cefTRIAXone 1 gm 1 GM/100 ML BAG IVPB SCH (10:00)
[2017-12-11] MEDS: Morphine 2 mg/ml ISec IVP PRN (10:18)
--- NOTE | 2017-12-11 10:19 | CP.PCM.CON ---
<Melo Sarabia - Last Filed: 12/11/17 13:22> History of Present Illness - History of Present Illness History of Present Illness: PGY-4 GI Fellow Consult Note Pt is a 57 yo BF with h/o HTN, H pylori with dyspepsia symptoms, colon polyps, anxiety? presenting with complaint of nausea and vomiting. She states that symptoms began in the AM of 12/10 after eating a baked ziti. Shes states that she normally doesn't eat dairy and tries to follow a low FODMAP most of the time at the instruction of her GI doc (Caesar at [facility]) but states that she didn't have other food options at the home. Emesis was NB/NB. She reports chronic, diffuse crampy abd pain for the last 6 months or so. She states that symptoms began after she had CSPY at [facility] in May 2017 with polyp removal. She also states that she was recently on a "gastro pill" which she was told to stop last week while seeing her primary GI doctor who told her that she had H pylori. She denies any hematemesis, dysphagia, melena nor hematochezia, sick contacts, recent travel, abx use, raw food consumption. Reports a normal soft BM prior to arrival which is normal for her. She states that she had lost weight over the l ast six months but she does not know the amount. Shes expresses anxiety and frustration over her symptoms the last several months, occasionally raising her voice and using profanity. Reports daily marijuana use. Lastly, she requested a diet prior to my departure. 12 point ROS negative other than stated above Endo Hx CSPY May 2017 at [facility] with polyps removed, stated she needed 2 day prep EGD 20 yrs ago and had an ulcer per her report MHx: See above PSH: Hysterectomy 2011 Medications: HCTZ, buproprion FamHx: Denied GI Problems SocHx: +Tob, + Marijuana 2xdaily denied EtOh Allergies: NKDA Past Patient History - Infectious Disease Hx of Infectious Diseases: None - Past Social History Smoking Status: Current Some Days Smoker - CARDIAC Hx Cardiac Disorders: Yes Hx Congestive Heart Failure: Yes - PULMONARY Hx Chronic Obstructive Pulmonary Disease (COPD): Yes - NEUROLOGICAL Hx Neurological Disorder: No - HEENT Hx HEENT Problems: No - RENAL Hx Chronic Kidney Disease: No - ENDOCRINE/METABOLIC Hx Endocrine Disorders: No - HEMATOLOGICAL/ONCOLOGICAL Hx Blood Disorders: No - INTEGUMENTARY Hx Dermatological Problems: No - MUSCULOSKELETAL/RHEUMATOLOGICAL Hx Falls: No Other/Comment: PINCH NERVE IN THE BACK - GASTROINTESTINAL Hx Gastrointestinal Disorders: Yes - GENITOURINARY/GYNECOLOGICAL Hx Genitourinary Disorders: Yes Hx Urinary Tract Infection: Yes - PSYCHIATRIC Hx Psychophysiologic Disorder: Yes Hx Bipolar Disorder: Yes Hx Substance Use: No (smoke marijuana) - SURGICAL HISTORY Hx Hysterectomy: Yes Meds Allergies/Adverse Reactions: Allergies Allergy/AdvReac Type Severity Reaction Status Date / Time No Known Allergies Allergy Verified 07/28/17 19:54 - Medications Medications: Current Medications Enoxaparin Sodium (Lovenox) 40 mg SC DAILY KYLEE; Protocol Famotidine (Pepcid) 20 mg PO 1000,2200 KYLEE Last Admin: 12/10/17 21:22 Dose: 20 mg Sodium Chloride (Sodium Chloride 0.9%) 1,000 mls @ 100 mls/hr IV .Q10H KYLEE Last Admin: 12/10/17 20:17 Dose: 100 mls/hr Ceftriaxone Sodium (Rocephin 1 Gram Ivpb) 1 gm in 100 mls @ 100 mls/hr IVPB DAILY KYLEE; Protocol Metronidazole (Flagyl) 500 mg in 100 mls @ 100 mls/hr IVPB Q8 KYLEE; Protocol Last Admin: 12/11/17 06:32 Dose: 100 mls/hr Morphine Sulfate (Morphine) 1 mg IVP Q6 PRN PRN Reason: Pain, moderate (4-7) Last Admin: 12/10/17 20:16 Dose: 1 mg Ondansetron HCl (Zofran Inj) 4 mg IVP Q4 PRN PRN Reason: Nausea/Vomiting Physical Exam - Constitutional Appears: Well, Non-toxic, Chronically Ill - Head Exam Head Exam: ATRAUMATIC, NORMAL INSPECTION - Eye Exam Eye Exam: EOMI. absent: Conjunctival injection, Scleral icterus - ENT Exam ENT Exam: Mucous Membranes Dry, Normal External Ear Exam. absent: Mucous Me mbranes Moist - Respiratory Exam Respiratory Exam: Clear to Auscultation Bilateral, NORMAL BREATHING PATTERN. absent: Accessory Muscle Use, Respiratory Distress - Cardiovascular Exam Cardiovascular Exam: REGULAR RHYTHM, RRR - GI/Abdominal Exam GI & Abdominal Exam: Normal Bowel Sounds, Soft. absent: Bruit, Diminished Bowel Sounds, Distended, Firm, Guarding, Hernia, Mass, Organomegaly, Pulsatile Mass, Rigid, Tenderness Additional comments: +midline lower abd scar - Rectal Exam Rectal Exam: Deferred - Extremities Exam Extremities exam: Positive for: normal inspection. Negative for: pedal edema - Neurological Exam Neurological exam: Alert, CN II-XII Intact, Oriented x3 - Psychiatric Exam Psychiatric exam: Agitated, Anxious - Skin Skin Exam: Normal Color, Warm Results - Vital Signs Recent Vital Signs: Last Vital Signs Temp 98.1 F 12/10/17 21:44 Pulse 85 12/10/17 21:44 Resp 20 12/11/17 00:19 BP 184/104 H 12/10/17 21:44 Pulse Ox 99 12/10/17 21:44 - Labs Result Diagrams: 12/11/17 07:00 12/11/17 07:00 Labs: Laboratory Results - last 24 hr 12/10/17 12/10/17 12/10/17 13:40 13:40 13:55 WBC 10.2 RBC 4.49 Hgb 15.3 D Hct 44.1 MCV 98.2 MCH 34.1 MCHC 34.7 RDW 12.6 Plt Count 432 MPV 9.5 Gran % 78.6 H Lymph % (Auto) 17.4 L [place] % (Auto) 3.5 Eos % (Auto) 0.2 L Baso % (Auto) 0.3 Gran # 7.98 H Lymph # (Auto) 1.8 [place] # (Auto) 0.4 Eos # (Auto) 0.0 Baso # (Auto) 0.03 Sodium 140 Potassium 3.4 L Chloride 101 Carbon Dioxide 26 Anion Gap 16 BUN 15 Creatinine 0.8 Est GFR ( Amer) > 60 Est GFR (Non-Af Amer) > 60 Random Glucose 166 H Calcium 10.4 Magnesium 2.1 Total Bilirubin 0.6 AST 35 ALT 28 Alkaline Phosphatase 113 Total Protein 8.8 H Albumin 5.1 H Globulin 3.7 Albumin/Globulin Ratio 1.4 Lipase 94 Urine Color Yellow Urine Appearance Sl cloudy Urine pH 8.0 Ur Specific [place] 1.020 Urine Protein 30 H Urine Glucose (UA) Negative Urine Ketones 15 H Urine Blood Negative Urine Nitrate Negative Urine Bilirubin Negative Urine Urobilinogen 0.2 Ur Leukocyte Esterase Negative Urine RBC Negative Urine WBC 0 - 2 Ur Epithelial Cells 10 - 12 Urine Bacteria Few Urine Opiates Screen Urine Methadone Screen Ur Barbiturates Screen Ur Phencyclidine Scrn Ur Amphetamines Screen U Benzodiazepines Scrn U Oth Cocaine Metabols U Cannabinoids Screen 12/10/17 12/11/17 12/11/17 14:00 07:00 07:00 WBC 9.0 RBC 3.88 Hgb 12.8 D Hct 38.7 MCV 99.7 MCH 33.0 MCHC 33.1 RDW 12.9 Plt Count 349 MPV 9.1 Gran % 67.3 Lymph % (Auto) 25.0 [place] % (Auto) 7.3 H Eos % (Auto) 0.2 L Baso % (Auto) 0.2 Gran # 6.06 Lymph # (Auto) 2.3 [place] # (Auto) 0.7 H Eos # (Auto) 0.0 Baso # (Auto) 0.02 Sodium 141 Potassium 3.5 L Chloride 107 Carbon Dioxide 24 Anion Gap 14 BUN 13 Creatinine 0.7 Est GFR ( Amer) > 60 Est GFR (Non-Af Amer) > 60 Random Glucose 96 Calcium 9.3 Magnesium Total Bilirubin 0.4 AST 26 ALT 24 Alkaline Phosphatase 75 Total Protein 7.2 Albumin 4.1 Globulin 3.1 Albumin/Globulin Ratio 1.3 Lipase Urine Color Urine Appearance Urine pH Ur Specific [place] Urine Protein Urine Glucose (UA) Urine Ketones Urine Blood Urine Nitrate Urine Bilirubin Urine Urobilinogen Ur Leukocyte Esterase Urine RBC Urine WBC Ur Epithelial Cells Urine Bacteria Urine Opiates Screen Negative Urine Methadone Screen Negative Ur Barbiturates Screen Negative Ur Phencyclidine Scrn Negative Ur Amphetamines Screen Negative U Benzodiazepines Scrn Negative U Oth Cocaine Metabols Negative U Cannabinoids Screen Positive H Assessment & Plan - Assessment and Plan (Free Text) Assessment: 57 yo BF with HTN, colon polyps, Hypylori and dyspepsia presenting with n/v and abd pain. # Acute on Chronic Abd Pain, N/V: Multifactorial in nature. Possibly related to untreated H pylori that she was told about last week. She also reports relief with low FODMAP diet which she recently did not follow as well as a dairy diet for possible lactose intolerance. Nausea and vomiting could also be related to marijuana with cannabis hyperemesis. Plan: - Supportive care - Full Liq Diet this AM, ADAT - Counseled on marijuana cessation - F/u with primary GI - Antibiotic course per primary but would limit to 5 days Thank you for the consult. Will sign off. Please call if questions. Pt seen and examined with Dr. Andersen <[email or web address] - Last Filed: 12/11/17 16:09> Results - Vital Signs Recent Vital Signs: Last Vital Signs Temp 98.1 F 12/10/17 21:44 Pulse 85 12/10/17 21:44 Resp 20 12/11/17 00:19 BP 184/104 H 12/10/17 21:44 Pulse Ox 99 12/10/17 21:44 - Labs Result Diagrams: 12/11/17 07:00 12/11/17 07:00 Labs: Laboratory Results - last 24 hr 12/11/17 12/11/17 07:00 07:00 WBC 9.0 RBC 3.88 Hgb 12.8 D Hct 38.7 MCV 99.7 MCH 33.0 MCHC 33.1 RDW 12.9 Plt Count 349 MPV 9.1 Gran % 67.3 Lymph % (Auto) 25.0 [place] % (Auto) 7.3 H Eos % (Auto) 0.2 L Baso % (Auto) 0.2 Gran # 6.06 Lymph # (Auto) 2.3 [place] # (Auto) 0.7 H Eos # (Auto) 0.0 Baso # (Auto) 0.02 Sodium 141 Potassium 3.5 L Chloride 107 Carbon Dioxide 24 Anion Gap 14 BUN 13 Creatinine 0.7 Est GFR ( Amer) > 60 Est GFR (Non-Af Amer) > 60 Random Glucose 96 Calcium 9.3 Total Bilirubin 0.4 AST 26 ALT 24 Alkaline Phosphatase 75 Total Protein 7.2 Albumin 4.1 Globulin 3.1 Albumin/Globulin Ratio 1.3 Attending/Attestation - Attestation I have personally seen and examined this patient.: Yes I have fully participated in the care of the patient.: Yes I have reviewed all pertinent clinical information: Yes Notes (Text): 12/11/17 16:03 I have seen and examined patient with GI fellow. Agree with above documentation with the following additions. In brief, this is a 57 year old female with history of HTN, anxiety, who presents to hospital with complaint of abdominal pain, nausea, vomiting which began yesterday following consumption of baked ziti. She has had numerous GI follow up visits with her primary physician Dr. Huerta in [facility] where workup for similar chronic symptoms have been negative. She had a colonoscopy in May 2017 with the removal of polyps as per patient and since then she has been experiencing chronic abdominal pain with intermittent vomiting. Outpatient workup thus far has not revealed any specific cause. She currently is seen resting in bed complains of diffuse crampy abdominal pain but was able to tolerate PO liquids without difficulty or recurrent vomiting. Of note, she does admit to daily marijuana use. She denies rectal bleeding or weight loss. HTN Anxiety Substance abuse Abdominal pain, vomiting - Advance diet as tolerated - Counseled patient on importance of dietary modification with adherence to low FODMAP diet - Begin once daily probiotic therapy - Marijuana cessation as this may contribute to ongoing symptoms - No further planned GI intervention at this time, will sign off case. Patient will follow up with primary GI physician after hospital discharge. Will sign off case, please reconsult as necessary, thank you.
[2017-12-11] MEDS ORDERED: buPROPion 150 mg/24 Hours XL Tab PO SCH (13:15)
--- NOTE | 2017-12-11 15:14 | CP.PCM.DIS ---
<Jb Velazquez - Last Filed: 12/11/17 17:01> Provider - Provider Date of Admission: 12/10/17 16:55 Attending physician: Juliet Thornton MD Primary care physician: NO PRIMARY CARE PROVIDER Time Spent in preparation of Discharge (in minutes): 35 Diagnosis - Discharge Diagnosis (1) Intractable nausea and vomiting Status: Acute Priority: High (2) Colitis Status: Acute Priority: High (3) Hypokalemia Status: Acute Priority: High Hospital Course - Lab Results Lab Results: Most Recent Lab Values WBC 9.0 10^3/uL (4.5-11.0) 12/11/17 07:00 RBC 3.88 10^6/uL (3.5-6.1) 12/11/17 07:00 Hgb 12.8 g/dL (12.0-16.0) D 12/11/17 07:00 Hct 38.7 % (36.0-48.0) 12/11/17 07:00 MCV 99.7 fl (80.0-105.0) 12/11/17 07:00 MCH 33.0 pg (25.0-35.0) 12/11/17 07:00 MCHC 33.1 g/dl (31.0-37.0) 12/11/17 07:00 RDW 12.9 % (11.5-14.5) 12/11/17 07:00 Plt Count 349 10^3/uL (120.0-450.0) 12/11/17 07:00 MPV 9.1 fl (7.0-11.0) 12/11/17 07:00 Gran % 67.3 % (50.0-68.0) 12/11/17 07:00 Lymph % (Auto) 25.0 % (22.0-35.0) 12/11/17 07:00 [place] % (Auto) 7.3 % (1.0-6.0) H 12/11/17 07:00 Eos % (Auto) 0.2 % (1.5-5.0) L 12/11/17 07:00 Baso % (Auto) 0.2 % (0.0-3.0) 12/11/17 07:00 Gran # 6.06 (1.4-6.5) 12/11/17 07:00 Lymph # (Auto) 2.3 (1.2-3.4) 12/11/17 07:00 [place] # (Auto) 0.7 (0.1-0.6) H 12/11/17 07:00 Eos # (Auto) 0.0 (0.0-0.7) 12/11/17 07:00 Baso # (Auto) 0.02 K/mm3 (0.0-2.0) 12/11/17 07:00 Sodium 141 mmol/L (132-148) 12/11/17 07:00 Potassium 3.5 mmol/L (3.6-5.0) L 12/11/17 07:00 Chloride 107 mmol/L (98-107) 12/11/17 07:00 Carbon Dioxide 24 mmol/L (21-33) 12/11/17 07:00 Anion Gap 14 (10-20) 12/11/17 07:00 BUN 13 mg/dL (7-21) 12/11/17 07:00 Creatinine 0.7 mg/dl (0.7-1.2) 12/11/17 07:00 Est GFR ( Amer) > 60 12/11/17 07:00 Est GFR (Non-Af Amer) > 60 12/11/17 07:00 Random Glucose 96 mg/dL (70-110) 12/11/17 07:00 Calcium 9.3 mg/dL (8.4-10.5) 12/11/17 07:00 Magnesium 2.1 mg/dL (1.7-2.2) 12/10/17 13:40 Total Bilirubin 0.4 mg/dL (0.2-1.3) 12/11/17 07:00 AST 26 U/L (14-36) 12/11/17 07:00 ALT 24 U/L (7-56) 12/11/17 07:00 Alkaline Phosphatase 75 U/L (38-126) 12/11/17 07:00 Total Protein 7.2 g/dL (5.8-8.3) 12/11/17 07:00 Albumin 4.1 g/dL (3.0-4.8) 12/11/17 07:00 Globulin 3.1 gm/dL 12/11/17 07:00 Albumin/Globulin Ratio 1.3 (1.1-1.8) 12/11/17 07:00 Lipase 94 U/L (23-300) 12/10/17 13:40 Urine Color Yellow (YELLOW) 12/10/17 13:55 Urine Appearance Sl cloudy (CLEAR) 12/10/17 13:55 Urine pH 8.0 (4.7-8.0) 12/10/17 13:55 Ur Specific [place] 1.020 (1.005-1.035) 12/10/17 13:55 Urine Protein 30 mg/dL (<30 mg/dL) H 12/10/17 13:55 Urine Glucose (UA) Negative mg/dL (NEGATIVE) 12/10/17 13:55 Urine Ketones 15 mg/dL (NEGATIVE) H 12/10/17 13:55 Urine Blood Negative (NEGATIVE) 12/10/17 13:55 Urine Nitrate Negative (NEGATIVE) 12/10/17 13:55 Urine Bilirubin Negative (NEGATIVE) 12/10/17 13:55 Urine Urobilinogen 0.2 E.U./dL (<1 E.U./dL) 12/10/17 13:55 Ur Leukocyte Esterase Negative Pia/uL (NEGATIVE) 12/10/17 13:55 Urine RBC Negative /hpf (0-2) 12/10/17 13:55 Urine WBC 0 - 2 /hpf (0-6) 12/10/17 13:55 Ur Epithelial Cells 10 - 12 /hpf (0-5) 12/10/17 13:55 Urine Bacteria Few (NEG) 12/10/17 13:55 Urine Opiates Screen Negative (NEGATIVE) 12/10/17 14:00 Urine Methadone Screen Negative (NEGATIVE) 12/10/17 14:00 Ur Barbiturates Screen Negative (NEGATIVE) 12/10/17 14:00 Ur Phencyclidine Scrn Negative (NEGATIVE) 12/10/17 14:00 Ur Amphetamines Screen Negative (NEGATIVE) 12/10/17 14:00 U Benzodiazepines Scrn Negative (NEGATIVE) 12/10/17 14:00 U Oth Cocaine Metabols Negative (NEGATIVE) 12/10/17 14:00 U Cannabinoids Screen Positive (NEGATIVE) H 12/10/17 14:00 - Hospital Course Hospital Course: Pt is a 57yo female with a PMH of HTN who presents to the ED complaining of nausea and vomiting which started morning of admission. Pt stated she had not been able to keep any food down with out vomiting. Pt tried taking Pepto Bismol with minimal relief. Pt denied having any changes in her diet. Pt stated she had a BM today which was soft. Pt stated she had had chronic crampy abdominal pain for the past 6 months. Pt stated she follows up with her GI physician regularly. Pt stated she uses marijuana twice per day. Pt stated she has been vomiting, but denied blood in the vomitus. Pt stated the abdominal pain is located in the middle of her abdomen. On admission, patient was given Zofran for nausea in the ED. CT abdomen and pelvis showed mild mural thickening in the transverse descending and sigmoid colon possibly representing colitis. Pt was kept NPO except for medicaitons, started on IV fluids, rocephin and flagyl, and given IV morphine for pain. GI was consulted. Pt was counseled extensively on marijuana cessation as this could be related with cannabis hyperemesis. Pt was informed that her diet would be advanced to liquid diet the next morning. However, patient was not willing to wait for her diet to be advanced and left against medical advice. - Date & Time of H&P Date of H&P: 12/11/17 Time of H&P: 06:00 Discharge Exam - Head Exam Head Exam: ATRAUMATIC, NORMAL INSPECTION - Eye Exam Eye Exam: EOMI - ENT Exam ENT Exam: Mucous Membranes Moist - Respiratory Exam Respiratory Exam: NORMAL BREATHING PATTERN, UNREMARKABLE. absent: Accessory Muscle Use, Wheezes - Cardiovascular Exam Cardiovascular Exam: RRR, +S1, +S2. absent: Diastolic murmur, Systolic Murmur - GI/Abdominal Exam GI & Abdominal Exam: Normal Bowel Sounds, Soft, Unremarkable. absent: Tenderness - Extremities Exam Extremities exam: full ROM, tenderness, pedal pulses present - Neurological Exam Neurological exam: Alert, Oriented x3 - Psychiatric Exam Psychiatric exam: Normal Affect, Normal Mood - Skin Skin Exam: Dry, Intact, Warm Discharge Plan - Follow Up Plan Condition: GOOD Disposition: AGAINST MEDICAL ADVICE Additional Instructions: pt left against medical advise Referrals: PCP,NO [Primary Care Provider] - <Gianni Shelton - Last Filed: 12/11/17 17:54> Provider - Provider Date of Admission: 12/10/17 16:55 Attending physician: Juliet Thornton MD Primary care physician: NO PRIMARY CARE PROVIDER Hospital Course - Lab Results Lab Results: Most Recent Lab Values WBC 9.0 10^3/uL (4.5-11.0) 12/11/17 07:00 RBC 3.88 10^6/uL (3.5-6.1) 12/11/17 07:00 Hgb 12.8 g/dL (12.0-16.0) D 12/11/17 07:00 Hct 38.7 % (36.0-48.0) 12/11/17 07:00 MCV 99.7 fl (80.0-105.0) 12/11/17 07:00 MCH 33.0 pg (25.0-35.0) 12/11/17 07:00 MCHC 33.1 g/dl (31.0-37.0) 12/11/17 07:00 RDW 12.9 % (11.5-14.5) 12/11/17 07:00 Plt Count 349 10^3/uL (120.0-450.0) 12/11/17 07:00 MPV 9.1 fl (7.0-11.0) 12/11/17 07:00 Gran % 67.3 % (50.0-68.0) 12/11/17 07:00 Lymph % (Auto) 25.0 % (22.0-35.0) 12/11/17 07:00 [place] % (Auto) 7.3 % (1.0-6.0) H 12/11/17 07:00 Eos % (Auto) 0.2 % (1.5-5.0) L 12/11/17 07:00 Baso % (Auto) 0.2 % (0.0-3.0) 12/11/17 07:00 Gran # 6.06 (1.4-6.5) 12/11/17 07:00 Lymph # (Auto) 2.3 (1.2-3.4) 12/11/17 07:00 [place] # (Auto) 0.7 (0.1-0.6) H 12/11/17 07:00 Eos # (Auto) 0.0 (0.0-0.7) 12/11/17 07:00 Baso # (Auto) 0.02 K/mm3 (0.0-2.0) 12/11/17 07:00 Sodium 141 mmol/L (132-148) 12/11/17 07:00 Potassium 3.5 mmol/L (3.6-5.0) L 12/11/17 07:00 Chloride 107 mmol/L (98-107) 12/11/17 07:00 Carbon Dioxide 24 mmol/L (21-33) 12/11/17 07:00 Anion Gap 14 (10-20) 12/11/17 07:00 BUN 13 mg/dL (7-21) 12/11/17 07:00 Creatinine 0.7 mg/dl (0.7-1.2) 12/11/17 07:00 Est GFR ( Amer) > 60 12/11/17 07:00 Est GFR (Non-Af Amer) > 60 12/11/17 07:00 Random Glucose 96 mg/dL (70-110) 12/11/17 07:00 Calcium 9.3 mg/dL (8.4-10.5) 12/11/17 07:00 Magnesium 2.1 mg/dL (1.7-2.2) 12/10/17 13:40 Total Bilirubin 0.4 mg/dL (0.2-1.3) 12/11/17 07:00 AST 26 U/L (14-36) 12/11/17 07:00 ALT 24 U/L (7-56) 12/11/17 07:00 Alkaline Phosphatase 75 U/L (38-126) 12/11/17 07:00 Total Protein 7.2 g/dL (5.8-8.3) 12/11/17 07:00 Albumin 4.1 g/dL (3.0-4.8) 12/11/17 07:00 Globulin 3.1 gm/dL 12/11/17 07:00 Albumin/Globulin Ratio 1.3 (1.1-1.8) 12/11/17 07:00 Lipase 94 U/L (23-300) 12/10/17 13:40 Urine Color Yellow (YELLOW) 12/10/17 13:55 Urine Appearance Sl cloudy (CLEAR) 12/10/17 13:55 Urine pH 8.0 (4.7-8.0) 12/10/17 13:55 Ur Specific [place] 1.020 (1.005-1.035) 12/10/17 13:55 Urine Protein 30 mg/dL (<30 mg/dL) H 12/10/17 13:55 Urine Glucose (UA) Negative mg/dL (NEGATIVE) 12/10/17 13:55 Urine Ketones 15 mg/dL (NEGATIVE) H 12/10/17 13:55 Urine Blood Negative (NEGATIVE) 12/10/17 13:55 Urine Nitrate Negative (NEGATIVE) 12/10/17 13:55 Urine Bilirubin Negative (NEGATIVE) 12/10/17 13:55 Urine Urobilinogen 0.2 E.U./dL (<1 E.U./dL) 12/10/17 13:55 Ur Leukocyte Esterase Negative Pia/uL (NEGATIVE) 12/10/17 13:55 Urine RBC Negative /hpf (0-2) 12/10/17 13:55 Urine WBC 0 - 2 /hpf (0-6) 12/10/17 13:55 Ur Epithelial Cells 10 - 12 /hpf (0-5) 12/10/17 13:55 Urine Bacteria Few (NEG) 12/10/17 13:55 Urine Opiates Screen Negative (NEGATIVE) 12/10/17 14:00 Urine Methadone Screen Negative (NEGATIVE) 12/10/17 14:00 Ur Barbiturates Screen Negative (NEGATIVE) 12/10/17 14:00 Ur Phencyclidine Scrn Negative (NEGATIVE) 12/10/17 14:00 Ur Amphetamines Screen Negative (NEGATIVE) 12/10/17 14:00 U Benzodiazepines Scrn Negative (NEGATIVE) 12/10/17 14:00 U Oth Cocaine Metabols Negative (NEGATIVE) 12/10/17 14:00 U Cannabinoids Screen Positive (NEGATIVE) H 12/10/17 14:00 Attending/Attestation - Attestation I have personally seen and examined this patient.: Yes I have fully participated in the care of the patient.: Yes I have reviewed all pertinent clinical information, including history, physical exam and plan: Yes Notes (Text): 12/11/17 17:52 Medical record note made by the resident after discussion with my direction and input after the patient was personally seen and examined by me. I have reviewed the chart and agree that the record accurately reflects by personal performance of the history, physical exam, data review, and medical decision-making, in the course for the patient. I have also personally directed the plan of care. Patient was alert,awake and oriented, understood the risk of leaving the hospital against medical advice.. 12/11/17 17:53
== END 2017-12-11 15:35 | disposition left against medical advice (07) | DRG 392 ==
LOC: ED 13:05 → ERH 16:55 → 5RSO 19:46
PROVIDERS: ADMIT Internal Medicine; ATTEND Internal Medicine
DX: K52.9 Noninfective gastroenteritis and colitis, unspecified (principal); R11.2 Nausea with vomiting, unspecified; E87.6 Hypokalemia; J44.9 Chronic obstructive pulmonary disease, unspecified; I11.0 Hypertensive heart disease with heart failure; I50.9 Heart failure, unspecified; E78.5 Hyperlipidemia, unspecified; F12.10 Cannabis abuse, uncomplicated; F41.9 Anxiety disorder, unspecified; Z87.891 Personal history of nicotine dependence; Z86.010 Personal history of colon polyps